=== PATIENT | male | born 1975 | race Caucasian/White ===

== ENCOUNTER 2019-04-06 02:28 | Observation (INO) | payer BC ==
[2019-04-06] MEDS ORDERED: Sodium Chloride 0.9% 10 ML Syringe FLUSH PRN (02:45)
[2019-04-06] MEDS ORDERED: Ondansetron 4 MG/2 ML SDV IVPUSH ONE (02:45)
[2019-04-06] MEDS ORDERED: Sodium Chloride 0.9% 2.5 ML Syringe FLUSH PRN (02:45)
[2019-04-06] MEDS ORDERED: HYDROmorphone 1 MG/ML Syringe IVPUSH ONE (02:45)
[2019-04-06] MEDS ORDERED: Sodium Chloride 0.9% 1,000 ML IV ONE ×2 (02:45→03:09)
--- NOTE | 2019-04-06 02:49 | EDM.PDOC ---
ED HPI GENERAL MEDICAL PROBLEM - General Chief Complaint: Abdominal Pain Stated Complaint: PLUGGED ILEOSTOMY Time Seen by Provider: 04/06/19 02:38 - History of Present Illness INITIAL COMMENTS - FREE TEXT/NARRATIVE: HISTORY AND PHYSICAL: History of present illness: The patient is a 44-year-old male with a history of Crohn's disease who underwent a total colectomy and small bowel resection with ileostomy in 1994 and says that he has been doing relatively well with his Crohn's and has not had any further surgical intervention and presents with complaints of abdominal pain that started at 12 noon yesterday after eating carrots. He says that he thought that he chewed them very well and he did not eat an excessive amount but sometimes vegetables such as that will cause him to have issues with getting his bowels moving. He says that he has nausea but he has not had any vomiting and he has felt hot but no documented fever chest pain or shortness of breath. He is just recently connected with our family practice clinic and is seeing them but he does not have a GI specialist currently. He is not taking any Biologics. He says that he feels like he is drying out and he is not able to take many fluids because of the discomfort and he feels somewhat bloated. He says he has had diminished urine output and the output in his ileostomy is normal color and liquidy but much less than usual. He says the pain is diffuse but mostly localized on the right side near the ileostomy. He says that he has had an admission here at our hospital in the past for something similar and was treated with bowel rest and it opened up naturally and he did not have to have any surgical intervention--- I researched the computer I cannot find any information regarding that. The patient also says that he is concerned because he does get dehydrated very quickly. The patient does state specifically that that he has only had one other admission for bowel obstruction and it was treated conservatively Patient says that he had his original surgery in [address] [facility] in [place] and did have a second surgery in a short period of time after the first in [place] but no subsequent operative interventions have occurred Review of systems: As per history of present illness and below otherwise all systems reviewed and negative. Past medical history: As per history of present illness and as reviewed below otherwise noncontributory. Surgical history: As per history of present illness and as reviewed below otherwise noncontributory. Social history: No reported history of drug or alcohol abuse. Family history: As per history of present illness and as reviewed below otherwise noncontributory. Physical exam: General: Well-developed well-nourished man who is nontoxic and vital signs are noted. He looks uncomfortable in the room but is cooperative and interactive HEENT: Atraumatic, normocephalic, pupils reactive, negative for conjunctival pallor or scleral icterus, mucous membranes tacky, throat clear, neck supple, nontender, trachea midline. Lungs: Clear to auscultation, breath sounds equal bilaterally, chest nontender. Heart: S1S2, regular rhythm and sensory tachycardic rate of my evaluation but no overt murmurs Abdomen: Soft, the abdomen is slightly distended and bowel sounds are very quiet and there is tympany on percussion of the right upper abdominal area above the ileostomy, the ileostomy is in the right lower quadrant and is pink and viable and there is a scant amount of liquid in the appliance which the patient says is normal in color although looks brownish pinkish on my evaluation. There is tenderness superior to the ileostomy extending to the upper abdomen but no localized area of tenderness and there is no rebound or guarding. Negative for masses or hepatosplenomegaly. Negative for costovertebral tenderness. Pelvis: Stable nontender. Genitourinary: Deferred. Rectal: Deferred. Extremities: Atraumatic, negative for cords or calf pain. Neurovascular unremarkable. Neuro: Awake, alert, oriented. Cranial nerves II through XII unremarkable. Cerebellum unremarkable. Motor and sensory unremarkable throughout. Exam nonfocal. Diagnostics: CBC CMP amylase lipase lactic acid UA with reflex CT scan of the abdomen and pelvis Therapeutics: IV fluids Zofran Dilaudid Patient is more comfortable and says that his pain is manageable. He is aware of testing results and need for admission to the hospital and is agreeable. His nausea is much improved 0500: Case was discussed with Dr. Castro will be on consult and agrees with IV fluids bowel rest and does not request an NG tube to be placed. She would like admission to medicine service 0505: Case was discussed with Dr. Elizalde who accepts the patient for observation admission Impression: Abdominal pain, small bowel obstruction History of Crohn's disease with total colectomy and ileostomy Definitive disposition and diagnosis as appropriate pending reevaluation and review of above. abdomen Pain Score (Numeric/FACES): 8 - Related Data Allergies Allergy/AdvReac Type Severity Reaction Status Date / Time meperidine HCl [From Demerol] Allergy Hallucinati Verified 04/06/19 02:31 ons Home Meds: Home Meds Testosterone Cypionate 200 mg IM ASDIRECTED 04/06/19 [History] hydroCHLOROthiazide [Hydrochlorothiazide] 1 tab PO DAILY 04/06/19 [History] ED ROS GENERAL - Review of Systems Review Of Systems: ROS reveals no pertinent complaints other than HPI. ED EXAM, GENERAL - Physical Exam Exam: See Below (See dictation) Course - Vital Signs Last Recorded V/S: Last Vital Signs Temp 36.4 C 04/06/19 05:01 Pulse 82 04/06/19 05:01 Resp 18 04/06/19 05:01 BP 116/75 04/06/19 05:01 Pulse Ox 97 04/06/19 05:01 - Orders/Labs/Meds Orders: Active Orders 24 hr Category Date Time Status Patient Status [ADT] Stat ADT 04/06/19 05:05 Ordered Notify Provider Consults [RC] ASDIRECTED Care 04/06/19 05:02 Ordered Consult to Physician [CONS] Stat Cons 04/06/19 05:02 Ordered Sodium Chloride 0.9% [Normal Saline] 1,000 ml Med 04/06/19 05:00 Active IV ASDIRECTED Sodium Chloride 0.9% [Saline Flush] Med 04/06/19 02:45 Active 10 ml FLUSH ASDIRECTED PRN Sodium Chloride 0.9% [Saline Flush] Med 04/06/19 02:45 Active 2.5 ml FLUSH ASDIRECTED PRN Saline Lock Insert [OM.PC] Stat Oth 04/06/19 02:44 Ordered Medication Orders Sodium Chloride (Normal Saline) 1,000 mls @ 150 mls/hr IV ASDIRECTED JOSIAS Sodium Chloride (Saline Flush) 10 ml FLUSH ASDIRECTED PRN PRN Reason: Keep Vein Open Sodium Chloride (Saline Flush) 2.5 ml FLUSH ASDIRECTED PRN PRN Reason: Keep Vein Open Labs: Laboratory Tests 04/06/19 04/06/19 04/06/19 Range/Units 02:40 02:40 02:40 WBC 9.12 (4.0-11.0) K/uL RBC 5.88 (4.50-5.90) M/uL Hgb 19.0 H (13.0-17.0) g/dL Hct 52.9 H (38.0-50.0) % MCV 90.0 (80.0-98.0) fL MCH 32.3 H (27.0-32.0) pg MCHC 35.9 (31.0-37.0) g/dL RDW Std Deviation 43.4 (28.0-62.0) fl RDW Coeff of Emily 14 (11.0-15.0) % Plt Count 232 (150-400) K/uL MPV 9.90 (7.40-12.00) fL Neut % (Auto) 83.5 H (48.0-80.0) % Lymph % (Auto) 11.8 L (16.0-40.0) % [place] % (Auto) 4.5 (0.0-15.0) % Eos % (Auto) 0.1 (0.0-7.0) % Baso % (Auto) 0.1 (0.0-1.5) % Neut # (Auto) 7.6 H (1.4-5.7) K/uL Lymph # (Auto) 1.1 (0.6-2.4) K/uL [place] # (Auto) 0.4 (0.0-0.8) K/uL Eos # (Auto) 0.0 (0.0-0.7) K/uL Baso # (Auto) 0.0 (0.0-0.1) K/uL Nucleated RBC % 0.0 /100WBC Nucleated RBCs # 0 K/uL Lactate 1.8 (0.20-2.00) mmol/L Sodium 132 L (136-148) mmol/L Potassium 4.1 (3.5-5.1) mmol/L Chloride 95 L (98-107) mmol/L Carbon Dioxide 27.7 (21.0-32.0) mmol/L BUN 22 H (7.0-18.0) mg/dL Creatinine 1.4 H (0.8-1.3) mg/dL Est Cr Clr Drug Dosing 67.33 mL/min Estimated GFR (MDRD) 55.1 ml/min Glucose 133 H (74-106) mg/dL Calcium 10.2 H (8.5-10.1) mg/dL Total Bilirubin 2.3 H (0.2-1.0) mg/dL AST 53 H (15-37) IU/L ALT 103 H (14-63) IU/L Alkaline Phosphatase 100 (46-116) U/L Total Protein 8.7 H (6.4-8.2) g/dL Albumin 4.8 (3.4-5.0) g/dL Globulin 3.9 (2.6-4.0) g/dL Albumin/Globulin Ratio 1.2 (0.9-1.6) Amylase 58 (25-115) U/L Lipase 123 (73-393) U/L Urine Color Urine Appearance Urine pH (5.0-8.0) Ur Specific [place] (1.001-1.035) Urine Protein (NEGATIVE) mg/dL Urine Glucose (UA) (NEGATIVE) mg/dL Urine Ketones (NEGATIVE) mg/dL Urine Occult Blood (NEGATIVE) Urine Nitrite (NEGATIVE) Urine Bilirubin (NEGATIVE) Urine Urobilinogen (<2.0) EU/dL Ur Leukocyte Esterase (NEGATIVE) 04/06/19 Range/Units 04:10 WBC (4.0-11.0) K/uL RBC (4.50-5.90) M/uL Hgb (13.0-17.0) g/dL Hct (38.0-50.0) % MCV (80.0-98.0) fL MCH (27.0-32.0) pg MCHC (31.0-37.0) g/dL RDW Std Deviation (28.0-62.0) fl RDW Coeff of Emily (11.0-15.0) % Plt Count (150-400) K/uL MPV (7.40-12.00) fL Neut % (Auto) (48.0-80.0) % Lymph % (Auto) (16.0-40.0) % [place] % (Auto) (0.0-15.0) % Eos % (Auto) (0.0-7.0) % Baso % (Auto) (0.0-1.5) % Neut # (Auto) (1.4-5.7) K/uL Lymph # (Auto) (0.6-2.4) K/uL [place] # (Auto) (0.0-0.8) K/uL Eos # (Auto) (0.0-0.7) K/uL Baso # (Auto) (0.0-0.1) K/uL Nucleated RBC % /100WBC Nucleated RBCs # K/uL Lactate (0.20-2.00) mmol/L Sodium (136-148) mmol/L Potassium (3.5-5.1) mmol/L Chloride (98-107) mmol/L Carbon Dioxide (21.0-32.0) mmol/L BUN (7.0-18.0) mg/dL Creatinine (0.8-1.3) mg/dL Est Cr Clr Drug Dosing mL/min Estimated GFR (MDRD) ml/min Glucose (74-106) mg/dL Calcium (8.5-10.1) mg/dL Total Bilirubin (0.2-1.0) mg/dL AST (15-37) IU/L ALT (14-63) IU/L Alkaline Phosphatase (46-116) U/L Total Protein (6.4-8.2) g/dL Albumin (3.4-5.0) g/dL Globulin (2.6-4.0) g/dL Albumin/Globulin Ratio (0.9-1.6) Amylase (25-115) U/L Lipase (73-393) U/L Urine Color YELLOW Urine Appearance CLEAR Urine pH 5.5 (5.0-8.0) Ur Specific [place] 1.010 (1.001-1.035) Urine Protein NEGATIVE (NEGATIVE) mg/dL Urine Glucose (UA) NEGATIVE (NEGATIVE) mg/dL Urine Ketones TRACE H (NEGATIVE) mg/dL Urine Occult Blood NEGATIVE (NEGATIVE) Urine Nitrite NEGATIVE (NEGATIVE) Urine Bilirubin NEGATIVE (NEGATIVE) Urine Urobilinogen 0.2 (<2.0) EU/dL Ur Leukocyte Esterase NEGATIVE (NEGATIVE) Meds: Medications Generic Name Dose Route Start Last Admin Trade Name Freq PRN Reason Stop Dose Admin Sodium Chloride 1,000 mls @ 150 mls/hr 04/06/19 05:00 Normal Saline IV ASDIRECTED JOSIAS Sodium Chloride 10 ml 04/06/19 02:45 Saline Flush FLUSH ASDIRECTED PRN Keep Vein Open Sodium Chloride 2.5 ml 04/06/19 02:45 Saline Flush FLUSH ASDIRECTED PRN Keep Vein Open Discontinued Medications Generic Name Dose Route Start Last Admin Trade Name Analisa PRN Reason Stop Dose Admin Hydromorphone HCl 1 mg 04/06/19 02:45 04/06/19 02:51 Dilaudid IVPUSH 04/06/19 02:46 1 mg ONETIME ONE Administration Sodium Chloride 1,000 mls @ 999 mls/hr 04/06/19 02:45 04/06/19 02:51 Normal Saline IV 04/06/19 03:45 999 mls/hr STAT ONE Administration Sodium Chloride 1,000 mls @ 999 mls/hr 04/06/19 03:09 04/06/19 04:13 Normal Saline IV 04/06/19 04:09 999 mls/hr STAT ONE Administration Iopamidol 80 ml 04/06/19 03:59 04/06/19 04:00 Isovue Multipack-370 (76%) IVPUSH 04/06/19 04:00 80 ml ONETIME STA Administration Ondansetron HCl 4 mg 04/06/19 02:45 04/06/19 02:51 Zofran IVPUSH 04/06/19 02:46 4 mg ONETIME ONE Administration Departure - Departure Time of Disposition: 05:07 Disposition: Refer to Observation Condition: Good Clinical Impression: Small bowel obstruction - Discharge Information Referrals: Ubaldo Askew MD [Primary Care Provider] - Forms: ED Department Discharge - My Orders Last 24 Hours: My Active Orders 04/06/19 02:44 Saline Lock Insert [OM.PC] Stat 04/06/19 02:45 Sodium Chloride 0.9% [Saline Flush] 10 ml FLUSH ASDIRECTED PRN Sodium Chloride 0.9% [Saline Flush] 2.5 ml FLUSH ASDIRECTED PRN 04/06/19 05:00 Sodium Chloride 0.9% [Normal Saline] 1,000 ml IV ASDIRECTED 04/06/19 05:02 Notify Provider Consults [RC] ASDIRECTED Consult to Physician [CONS] Stat 04/06/19 05:05 Patient Status [ADT] Stat - Assessment/Plan Last 24 Hours: My Active Orders 04/06/19 02:44 Saline Lock Insert [OM.PC] Stat 04/06/19 02:45 Sodium Chloride 0.9% [Saline Flush] 10 ml FLUSH ASDIRECTED PRN Sodium Chloride 0.9% [Saline Flush] 2.5 ml FLUSH ASDIRECTED PRN 04/06/19 05:00 Sodium Chloride 0.9% [Normal Saline] 1,000 ml IV ASDIRECTED 04/06/19 05:02 Notify Provider Consults [RC] ASDIRECTED Consult to Physician [CONS] Stat 04/06/19 05:05 Patient Status [ADT] Stat
[2019-04-06] MEDS ORDERED: Iopamidol 755 MG/ML 500 ML Multipack Bottle IVPUSH STA (03:59)
--- NOTE | 2019-04-06 04:50 | CT ---
INDICATION: History of colectomy for Crohn`s disease. Bowel obstruction TECHNIQUE: CT abdomen and pelvis acquired with IV contrast. 80 mL of Isovue 370 administered. COMPARISON: None available FINDINGS: Lower chest: Unremarkable. Liver: Mild hepatic steatosis. Spleen: Unremarkable. Pancreas: Unremarkable. Gallbladder and bile ducts: Dependent ovoid densities within the moderately distended gallbladder consistent with a poorly calcified gallstones or sludge balls. Adrenal glands: Unremarkable. Kidneys: Unremarkable. GI tract: Post colectomy changes with a right lower quadrant ileostomy. Dilated fluid and gas-filled small bowel segments, consistent with bowel obstruction, with a transition point in the right pelvis. Vascular structures: Unremarkable. Lymph nodes: Shotty borderline periportal and portacaval lymph nodes, nonspecific, which could be reactive in the setting of hepatic steatosis. Miscellaneous: Small fluid in the posterior pelvis. No free air. Pelvic Organs: Unremarkable. Bones: Unremarkable for age. IMPRESSION: A small bowel obstruction with a transition point in the right pelvis. Hepatic steatosis. Poorly calcified gallstones versus sludge balls within the moderately distended gallbladder. Dictated by Marcin Warren MD @ 04/06/2019 4:48:22 AM Please note that all CT scans at this facility use dose modulation, iterative reconstruction, and/or weight-based dosing when appropriate to reduce radiation dose to as low as reasonably achievable. Dictated by: Marcin Warren MD @ 04/06/2019 04:48:29 (Electronically Signed)
[2019-04-06] MEDS ORDERED: Sodium Chloride 0.9% 1,000 ML IV SCH (05:00)
[2019-04-06] MEDS ORDERED: oxyCODONE 5 MG Tab PO PRN (06:38)
[2019-04-06] MEDS ORDERED: Acetaminophen 325 MG Tab PO PRN (06:38)
[2019-04-06] MEDS ORDERED: Ondansetron 4 MG/2 ML SDV IVPUSH PRN (06:38)
[2019-04-06] MEDS ORDERED: Temazepam 15 MG Cap PO PRN (06:38)
[2019-04-06] MEDS: Morphine 2 MG/ML Syringe IVPUSH PRN ×6 (06:52→19:38)
[2019-04-06] MEDS: Heparin Sodium 5,000 Units/ML Vial SUBCUT SCH ×3 (06:53→21:07)
[2019-04-06] MEDS: Sodium Chloride 0.9% 1,000 ML IV SCH ×4 (06:59→21:07)
--- NOTE | 2019-04-06 08:26 | PCM.HP ---
<Haleynarcisa Mil Duval - Last Filed: 04/06/19 08:34> H&P History of Present Illness - General Date of Service: 04/06/19 Admit Problem/Dx: Admission Diagnosis/Problem Admission Diagnosis/Problem Intestinal obstruction - History of Present Illness Initial Comments - Free Text/Narative: 44 y/o male with history of Crohn's s/p colectomy with ostomy placement who presented to the ER with abdominal pain. States that he was feeling fine up until yesterday when he ate carrots and since then he has been feeling more bloated, constipated. States that he usually gets like this once a year. Denies any nausea, vomiting. Mild diffuse abdominal pain. No blood in stool. CT abdomen showed a small bowel obstruction in right pelvic area. Denies chest pain, dyspnea, dysuria. abdomen Pain Score (Numeric/FACES): 5 - Related Data Allergies/Adverse Reactions: Allergies Allergy/AdvReac Type Severity Reaction Status Date / Time meperidine HCl [From Demerol] Allergy Hallucinati Verified 04/06/19 02:31 ons Home Medications: Home Meds Testosterone Cypionate 200 mg IM ASDIRECTED 04/06/19 [History] hydroCHLOROthiazide [Hydrochlorothiazide] 1 tab PO DAILY 04/06/19 [History] Past Medical History Cardiovascular History: Reports: Hypertension Gastrointestinal History: Reports: Inflammatory Bowel Disease, Other (See Below) Other Gastrointestinal History: crohn's ds Endocrine/Metabolic History: Reports: Other (See Below) Other Endocrine/Metabolic History: decrease testosterone - Past Surgical History GI Surgical History: Reports: Other (See Below) Other GI Surgeries/Procedures: Ileostomy Social & Family History - Family History Family Medical History: Noncontributory - Tobacco Use Smoking Status *Q: Never Smoker Second Hand Smoke Exposure: No - Caffeine Use Caffeine Use: Reports: None - Recreational Drug Use Recreational Drug Use: No H&P Review of Systems - Review of Systems: Review Of Systems: ROS reveals no pertinent complaints other than HPI. Exam - Exam Exam: See Below - Vital Signs Vital Signs: Last Vital Signs Temp 37.3 C 04/06/19 07:53 Pulse 84 04/06/19 07:53 Resp 16 04/06/19 07:53 BP 114/63 04/06/19 07:53 Pulse Ox 93 L 04/06/19 07:53 Weight: 123.604 kg - Exam General: Alert, Oriented, Cooperative HEENT: Other (dry oral mucosa) Lungs: Clear to Auscultation, Normal Respiratory Effort. No: Crackles, Wheezing Cardiovascular: Regular Rate, Regular Rhythm GI/Abdominal Exam: Other (hypoactive bowel sounds, distended. Non tender. there is loose brown stool in ostomy bag.) Extremities: Normal Inspection, No Pedal Edema Skin: Warm, Dry Neuro Extensive - Mental Status: Alert, Oriented x3 - Patient Data Lab Results Last 24 hrs: Laboratory Results - last 24 hr 04/06/19 04/06/19 04/06/19 Range/Units 02:40 02:40 02:40 WBC 9.12 (4.0-11.0) K/uL RBC 5.88 (4.50-5.90) M/uL Hgb 19.0 H (13.0-17.0) g/dL Hct 52.9 H (38.0-50.0) % MCV 90.0 (80.0-98.0) fL MCH 32.3 H (27.0-32.0) pg MCHC 35.9 (31.0-37.0) g/dL RDW Std Deviation 43.4 (28.0-62.0) fl RDW Coeff of Emily 14 (11.0-15.0) % Plt Count 232 (150-400) K/uL MPV 9.90 (7.40-12.00) fL Neut % (Auto) 83.5 H (48.0-80.0) % Lymph % (Auto) 11.8 L (16.0-40.0) % [place] % (Auto) 4.5 (0.0-15.0) % Eos % (Auto) 0.1 (0.0-7.0) % Baso % (Auto) 0.1 (0.0-1.5) % Neut # (Auto) 7.6 H (1.4-5.7) K/uL Lymph # (Auto) 1.1 (0.6-2.4) K/uL [place] # (Auto) 0.4 (0.0-0.8) K/uL Eos # (Auto) 0.0 (0.0-0.7) K/uL Baso # (Auto) 0.0 (0.0-0.1) K/uL Nucleated RBC % 0.0 /100WBC Nucleated RBCs # 0 K/uL Lactate 1.8 (0.20-2.00) mmol/L Sodium 132 L (136-148) mmol/L Potassium 4.1 (3.5-5.1) mmol/L Chloride 95 L (98-107) mmol/L Carbon Dioxide 27.7 (21.0-32.0) mmol/L BUN 22 H (7.0-18.0) mg/dL Creatinine 1.4 H (0.8-1.3) mg/dL Est Cr Clr Drug Dosing 67.33 mL/min Estimated GFR (MDRD) 55.1 ml/min Glucose 133 H (74-106) mg/dL Calcium 10.2 H (8.5-10.1) mg/dL Total Bilirubin 2.3 H (0.2-1.0) mg/dL AST 53 H (15-37) IU/L ALT 103 H (14-63) IU/L Alkaline Phosphatase 100 (46-116) U/L Total Protein 8.7 H (6.4-8.2) g/dL Albumin 4.8 (3.4-5.0) g/dL Globulin 3.9 (2.6-4.0) g/dL Albumin/Globulin Ratio 1.2 (0.9-1.6) Amylase 58 (25-115) U/L Lipase 123 (73-393) U/L Urine Color Urine Appearance Urine pH (5.0-8.0) Ur Specific Robinson (1.001-1.035) Urine Protein (NEGATIVE) mg/dL Urine Glucose (UA) (NEGATIVE) mg/dL Urine Ketones (NEGATIVE) mg/dL Urine Occult Blood (NEGATIVE) Urine Nitrite (NEGATIVE) Urine Bilirubin (NEGATIVE) Urine Urobilinogen (<2.0) EU/dL Ur Leukocyte Esterase (NEGATIVE) 04/06/19 Range/Units 04:10 WBC (4.0-11.0) K/uL RBC (4.50-5.90) M/uL Hgb (13.0-17.0) g/dL Hct (38.0-50.0) % MCV (80.0-98.0) fL MCH (27.0-32.0) pg MCHC (31.0-37.0) g/dL RDW Std Deviation (28.0-62.0) fl RDW Coeff of Emily (11.0-15.0) % Plt Count (150-400) K/uL MPV (7.40-12.00) fL Neut % (Auto) (48.0-80.0) % Lymph % (Auto) (16.0-40.0) % [place] % (Auto) (0.0-15.0) % Eos % (Auto) (0.0-7.0) % Baso % (Auto) (0.0-1.5) % Neut # (Auto) (1.4-5.7) K/uL Lymph # (Auto) (0.6-2.4) K/uL [place] # (Auto) (0.0-0.8) K/uL Eos # (Auto) (0.0-0.7) K/uL Baso # (Auto) (0.0-0.1) K/uL Nucleated RBC % /100WBC Nucleated RBCs # K/uL Lactate (0.20-2.00) mmol/L Sodium (136-148) mmol/L Potassium (3.5-5.1) mmol/L Chloride (98-107) mmol/L Carbon Dioxide (21.0-32.0) mmol/L BUN (7.0-18.0) mg/dL Creatinine (0.8-1.3) mg/dL Est Cr Clr Drug Dosing mL/min Estimated GFR (MDRD) ml/min Glucose (74-106) mg/dL Calcium (8.5-10.1) mg/dL Total Bilirubin (0.2-1.0) mg/dL AST (15-37) IU/L ALT (14-63) IU/L Alkaline Phosphatase (46-116) U/L Total Protein (6.4-8.2) g/dL Albumin (3.4-5.0) g/dL Globulin (2.6-4.0) g/dL Albumin/Globulin Ratio (0.9-1.6) Amylase (25-115) U/L Lipase (73-393) U/L Urine Color YELLOW Urine Appearance CLEAR Urine pH 5.5 (5.0-8.0) Ur Specific Robinson 1.010 (1.001-1.035) Urine Protein NEGATIVE (NEGATIVE) mg/dL Urine Glucose (UA) NEGATIVE (NEGATIVE) mg/dL Urine Ketones TRACE H (NEGATIVE) mg/dL Urine Occult Blood NEGATIVE (NEGATIVE) Urine Nitrite NEGATIVE (NEGATIVE) Urine Bilirubin NEGATIVE (NEGATIVE) Urine Urobilinogen 0.2 (<2.0) EU/dL Ur Leukocyte Esterase NEGATIVE (NEGATIVE) Result Diagrams: 04/06/19 02:40 04/06/19 02:40 Problem List Initiated/Reviewed/Updated: Yes Orders Last 24hrs: Active Orders 24 hr Category Date Time Status Patient Status [ADT] Stat ADT 04/06/19 05:05 Active Notify Provider Consults [RC] ASDIRECTED Care 04/06/19 05:02 Active Oxygen Therapy [RC] PRN Care 04/06/19 06:38 Active Up ad Tabatha [RC] ASDIRECTED Care 04/06/19 06:38 Active VTE/DVT Education [RC] PER UNIT ROUTINE Care 04/06/19 06:38 Active Vital Signs [RC] Q4H Care 04/06/19 06:38 Active Consult to Physician [CONS] Stat Cons 04/06/19 05:02 Active Nothing per Oral Now Diet [DIET] Diet 04/06/19 Breakfast Active BASIC METABOLIC PANEL,BMP [CHEM] DAILY Lab 04/07/19 05:11 Ordered BASIC METABOLIC PANEL,BMP [CHEM] DAILY Lab 04/08/19 05:11 Ordered CBC WITH AUTO DIFF [HEME] DAILY Lab 04/07/19 06:38 Ordered CBC WITH AUTO DIFF [HEME] DAILY Lab 04/08/19 06:38 Ordered Acetaminophen [Tylenol] Med 04/06/19 06:38 Active 650 mg PO Q4H PRN Heparin Sodium Med 04/06/19 06:00 Active 5,000 units SUBCUT Q8H Morphine Med 04/06/19 06:38 Active 2 mg IVPUSH Q2H PRN Ondansetron [Zofran] Med 04/06/19 06:38 Active 4 mg IVPUSH Q4H PRN Sodium Chloride 0.9% [Normal Saline] 1,000 ml Med 04/06/19 06:45 Active IV ASDIRECTED Sodium Chloride 0.9% [Saline Flush] Med 04/06/19 02:45 Active 10 ml FLUSH ASDIRECTED PRN Sodium Chloride 0.9% [Saline Flush] Med 04/06/19 02:45 Active 2.5 ml FLUSH ASDIRECTED PRN Temazepam [Restoril] Med 04/06/19 06:38 Active 15 mg PO BEDTIME PRN oxyCODONE Med 04/06/19 06:38 Active 5 mg PO Q4H PRN Saline Lock Insert [OM.PC] Stat Oth 04/06/19 02:44 Ordered Resuscitation Status Routine Resus Stat 04/06/19 06:38 Ordered Medication Orders Acetaminophen (Tylenol) 650 mg PO Q4H PRN PRN Reason: Pain (Mild 1-3)/fever Heparin Sodium (Porcine) (Heparin Sodium) 5,000 units SUBCUT Q8H [facility] Last Admin: 04/06/19 06:53 Dose: 5,000 units Sodium Chloride (Normal Saline) 1,000 mls @ 200 mls/hr IV ASDIRECTED [facility] Last Admin: 04/06/19 06:59 Dose: 125 mls/hr Morphine Sulfate (Morphine) 2 mg IVPUSH Q2H PRN PRN Reason: Pain (severe 7-10) Stop: 04/07/19 06:39 Last Admin: 04/06/19 06:52 Dose: 2 mg Ondansetron HCl (Zofran) 4 mg IVPUSH Q4H PRN PRN Reason: Nausea/Vomiting Oxycodone HCl (Oxycodone) 5 mg PO Q4H PRN PRN Reason: Pain (moderate 4-6) Sodium Chloride (Saline Flush) 10 ml FLUSH ASDIRECTED PRN PRN Reason: Keep Vein Open Sodium Chloride (Saline Flush) 2.5 ml FLUSH ASDIRECTED PRN PRN Reason: Keep Vein Open Temazepam (Restoril) 15 mg PO BEDTIME PRN PRN Reason: Sleep Assessment/Plan Comment:: A: 1. Small bowel obstruction 2. Acute kidney injury 3. Erythrocytosis 4. Hyperbilirubinemia 5. PMH Crohn's disease s/p colectomy with ostomy placement P: 1. Small bowel obstruction. Bowel rest, NPO, NS IV at 200 ml/hr. Pain control. 2. Acute kidney injury, likely 2/2 dehydration. Will continue with NS IV 200 ml/ hr. Monitor kidney function. 3. Erythrocytosis, likely 2/2 to dehydration. Monitor. Dispo: 1-2 days <Az Elizalde M - Last Filed: 04/06/19 13:18> H&P History of Present Illness - General Admit Problem/Dx: Admission Diagnosis/Problem Admission Diagnosis/Problem Intestinal obstruction I have seen and examined to patient independently of medical detail representative, Mil Pelaez MD. I have discussed the case for care of this patient with him. I have reviewed and approve of the plan of care as outlined by medical detail representative. Please see orders. Exam - Vital Signs Vital Signs: Last Vital Signs Temp 36.6 C 04/06/19 11:00 Pulse 84 04/06/19 11:00 Resp 20 04/06/19 11:00 BP 126/68 04/06/19 11:00 Pulse Ox 95 04/06/19 11:00 - Patient Data Lab Results Last 24 hrs: Laboratory Results - last 24 hr 04/06/19 04/06/19 04/06/19 Range/Units 02:40 02:40 02:40 WBC 9.12 (4.0-11.0) K/uL RBC 5.88 (4.50-5.90) M/uL Hgb 19.0 H (13.0-17.0) g/dL Hct 52.9 H (38.0-50.0) % MCV 90.0 (80.0-98.0) fL MCH 32.3 H (27.0-32.0) pg MCHC 35.9 (31.0-37.0) g/dL RDW Std Deviation 43.4 (28.0-62.0) fl RDW Coeff of Emily 14 (11.0-15.0) % Plt Count 232 (150-400) K/uL MPV 9.90 (7.40-12.00) fL Neut % (Auto) 83.5 H (48.0-80.0) % Lymph % (Auto) 11.8 L (16.0-40.0) % [place] % (Auto) 4.5 (0.0-15.0) % Eos % (Auto) 0.1 (0.0-7.0) % Baso % (Auto) 0.1 (0.0-1.5) % Neut # (Auto) 7.6 H (1.4-5.7) K/uL Lymph # (Auto) 1.1 (0.6-2.4) K/uL [place] # (Auto) 0.4 (0.0-0.8) K/uL Eos # (Auto) 0.0 (0.0-0.7) K/uL Baso # (Auto) 0.0 (0.0-0.1) K/uL Nucleated RBC % 0.0 /100WBC Nucleated RBCs # 0 K/uL Lactate 1.8 (0.20-2.00) mmol/L Sodium 132 L (136-148) mmol/L Potassium 4.1 (3.5-5.1) mmol/L Chloride 95 L (98-107) mmol/L Carbon Dioxide 27.7 (21.0-32.0) mmol/L BUN 22 H (7.0-18.0) mg/dL Creatinine 1.4 H (0.8-1.3) mg/dL Est Cr Clr Drug Dosing 67.33 mL/min Estimated GFR (MDRD) 55.1 ml/min Glucose 133 H (74-106) mg/dL Calcium 10.2 H (8.5-10.1) mg/dL Total Bilirubin 2.3 H (0.2-1.0) mg/dL AST 53 H (15-37) IU/L ALT 103 H (14-63) IU/L Alkaline Phosphatase 100 (46-116) U/L Total Protein 8.7 H (6.4-8.2) g/dL Albumin 4.8 (3.4-5.0) g/dL Globulin 3.9 (2.6-4.0) g/dL Albumin/Globulin Ratio 1.2 (0.9-1.6) Amylase 58 (25-115) U/L Lipase 123 (73-393) U/L Urine Color Urine Appearance Urine pH (5.0-8.0) Ur Specific Robinson (1.001-1.035) Urine Protein (NEGATIVE) mg/dL Urine Glucose (UA) (NEGATIVE) mg/dL Urine Ketones (NEGATIVE) mg/dL Urine Occult Blood (NEGATIVE) Urine Nitrite (NEGATIVE) Urine Bilirubin (NEGATIVE) Urine Urobilinogen (<2.0) EU/dL Ur Leukocyte Esterase (NEGATIVE) 04/06/19 Range/Units 04:10 WBC (4.0-11.0) K/uL RBC (4.50-5.90) M/uL Hgb (13.0-17.0) g/dL Hct (38.0-50.0) % MCV (80.0-98.0) fL MCH (27.0-32.0) pg MCHC (31.0-37.0) g/dL RDW Std Deviation (28.0-62.0) fl RDW Coeff of Emily (11.0-15.0) % Plt Count (150-400) K/uL MPV (7.40-12.00) fL Neut % (Auto) (48.0-80.0) % Lymph % (Auto) (16.0-40.0) % [place] % (Auto) (0.0-15.0) % Eos % (Auto) (0.0-7.0) % Baso % (Auto) (0.0-1.5) % Neut # (Auto) (1.4-5.7) K/uL Lymph # (Auto) (0.6-2.4) K/uL [place] # (Auto) (0.0-0.8) K/uL Eos # (Auto) (0.0-0.7) K/uL Baso # (Auto) (0.0-0.1) K/uL Nucleated RBC % /100WBC Nucleated RBCs # K/uL Lactate (0.20-2.00) mmol/L Sodium (136-148) mmol/L Potassium (3.5-5.1) mmol/L Chloride (98-107) mmol/L Carbon Dioxide (21.0-32.0) mmol/L BUN (7.0-18.0) mg/dL Creatinine (0.8-1.3) mg/dL Est Cr Clr Drug Dosing mL/min Estimated GFR (MDRD) ml/min Glucose (74-106) mg/dL Calcium (8.5-10.1) mg/dL Total Bilirubin (0.2-1.0) mg/dL AST (15-37) IU/L ALT (14-63) IU/L Alkaline Phosphatase (46-116) U/L Total Protein (6.4-8.2) g/dL Albumin (3.4-5.0) g/dL Globulin (2.6-4.0) g/dL Albumin/Globulin Ratio (0.9-1.6) Amylase (25-115) U/L Lipase (73-393) U/L Urine Color YELLOW Urine Appearance CLEAR Urine pH 5.5 (5.0-8.0) Ur Specific [place] 1.010 (1.001-1.035) Urine Protein NEGATIVE (NEGATIVE) mg/dL Urine Glucose (UA) NEGATIVE (NEGATIVE) mg/dL Urine Ketones TRACE H (NEGATIVE) mg/dL Urine Occult Blood NEGATIVE (NEGATIVE) Urine Nitrite NEGATIVE (NEGATIVE) Urine Bilirubin NEGATIVE (NEGATIVE) Urine Urobilinogen 0.2 (<2.0) EU/dL Ur Leukocyte Esterase NEGATIVE (NEGATIVE) Result Diagrams: 04/06/19 02:40 04/06/19 02:40 Orders Last 24hrs: Active Orders 24 hr Category Date Time Status Patient Status [ADT] Stat ADT 04/06/19 05:05 Active Notify Provider Consults [RC] ASDIRECTED Care 04/06/19 05:02 Active Oxygen Therapy [RC] PRN Care 04/06/19 06:38 Active Up ad Tabatha [RC] ASDIRECTED Care 04/06/19 06:38 Active VTE/DVT Education [RC] PER UNIT ROUTINE Care 04/06/19 06:38 Active Vital Signs [RC] Q4H Care 04/06/19 06:38 Active Consult to Physician [CONS] Stat Cons 04/06/19 05:02 Active Nothing per Oral Now Diet [DIET] Diet 04/06/19 Breakfast Active BASIC METABOLIC PANEL,BMP [CHEM] DAILY Lab 04/07/19 05:11 Ordered BASIC METABOLIC PANEL,BMP [CHEM] DAILY Lab 04/08/19 05:11 Ordered CBC WITH AUTO DIFF [HEME] DAILY Lab 04/07/19 06:38 Ordered CBC WITH AUTO DIFF [HEME] DAILY Lab 04/08/19 06:38 Ordered Acetaminophen [Tylenol] Med 04/06/19 06:38 Active 650 mg PO Q4H PRN Heparin Sodium Med 04/06/19 06:00 Active 5,000 units SUBCUT Q8H Morphine Med 04/06/19 06:38 Active 2 mg IVPUSH Q2H PRN Ondansetron [Zofran] Med 04/06/19 06:38 Active 4 mg IVPUSH Q4H PRN Sodium Chloride 0.9% [Normal Saline] 1,000 ml Med 04/06/19 06:45 Active IV ASDIRECTED Sodium Chloride 0.9% [Saline Flush] Med 04/06/19 02:45 Active 10 ml FLUSH ASDIRECTED PRN Sodium Chloride 0.9% [Saline Flush] Med 04/06/19 02:45 Active 2.5 ml FLUSH ASDIRECTED PRN Temazepam [Restoril] Med 04/06/19 06:38 Active 15 mg PO BEDTIME PRN oxyCODONE Med 04/06/19 06:38 Active 5 mg PO Q4H PRN Saline Lock Insert [OM.PC] Stat Oth 04/06/19 02:44 Ordered Resuscitation Status Routine Resus Stat 04/06/19 06:38 Ordered Medication Orders Acetaminophen (Tylenol) 650 mg PO Q4H PRN PRN Reason: Pain (Mild 1-3)/fever Heparin Sodium (Porcine) (Heparin Sodium) 5,000 units SUBCUT Q8H [facility] Last Admin: 04/06/19 06:53 Dose: 5,000 units Sodium Chloride (Normal Saline) 1,000 mls @ 200 mls/hr IV ASDIRECTED [facility] Last Admin: 04/06/19 11:29 Dose: 200 mls/hr Infusion: 04/06/19 11:29 Dose: 125 mls/hr Admin: 04/06/19 06:59 Dose: 125 mls/hr Morphine Sulfate (Morphine) 2 mg IVPUSH Q2H PRN PRN Reason: Pain (severe 7-10) Stop: 04/07/19 06:39 Last Admin: 04/06/19 11:57 Dose: 2 mg Admin: 04/06/19 09:03 Dose: 2 mg Admin: 04/06/19 06:52 Dose: 2 mg Ondansetron HCl (Zofran) 4 mg IVPUSH Q4H PRN PRN Reason: Nausea/Vomiting Oxycodone HCl (Oxycodone) 5 mg PO Q4H PRN PRN Reason: Pain (moderate 4-6) Sodium Chloride (Saline Flush) 10 ml FLUSH ASDIRECTED PRN PRN Reason: Keep Vein Open Sodium Chloride (Saline Flush) 2.5 ml FLUSH ASDIRECTED PRN PRN Reason: Keep Vein Open Temazepam (Restoril) 15 mg PO BEDTIME PRN PRN Reason: Sleep
--- NOTE | 2019-04-06 14:20 | PCM.CONS ---
H&P History of Present Illness - General Date of Service: 04/06/19 Admit Problem/Dx: Admission Diagnosis/Problem Admission Diagnosis/Problem Intestinal obstruction I have seen and examined to patient independently of medical educator, Mil Pelaez MD. I have discussed the case for care of this patient with him. I have reviewed and approve of the plan of care as outlined by medical educator. Please see orders. Source of Information: Patient History Limitations: Reports: No Limitations - History of Present Illness Initial Comments - Free Text/Narative: Patient is a 44 year old male who presents with a small bowel obstruction. His history is significant for Crohns disease but he does not take medication for this . In 1994, he underwent a total colectomy with end ileostomy in [facility]. He believes they had to remove some small bowel as well. He thinks he had an issue with his colon that then caused a "leak". He underwent surgery some time ( years) after this for a SBO due to abdominal adhesions. he has been hospitalized once after this for a SBO that did not require surgery. He was doing well yesterday. He last ate carrots. He started having crampy abdominal pain, nausea and bloating. He came to the ER early this morning. His labs were normal other than a left shift. His lactate was normal. A CT abdomen/pelvis was performed that showed a SBO with a transition point in the RLQ. He is still having some ileostomy output but much less than normal. During our visit he was comfortable but then started having crampy abdominal pain. He was given morphine which helped. Toradol was ordered as well. He becomes diaphoretic with these episodes and "feels warm". He has not had a fever. He has not vomited since admission, but is having a lot of burping. This burping relieves his nausea. abdomen Pain Score (Numeric/FACES): 9 - Related Data Allergies/Adverse Reactions: Allergies Allergy/AdvReac Type Severity Reaction Status Date / Time meperidine HCl [From Demerol] Allergy Hallucinati Verified 04/06/19 02:31 ons Home Medications: Home Meds Testosterone Cypionate 200 mg IM ASDIRECTED 04/06/19 [History] hydroCHLOROthiazide [Hydrochlorothiazide] 1 tab PO DAILY 04/06/19 [History] Past Medical History Cardiovascular History: Reports: Hypertension Gastrointestinal History: Reports: Inflammatory Bowel Disease, Other (See Below) Other Gastrointestinal History: crohn's ds Endocrine/Metabolic History: Reports: Other (See Below) Other Endocrine/Metabolic History: decrease testosterone - Past Surgical History GI Surgical History: Reports: Other (See Below) Other GI Surgeries/Procedures: Ileostomy Social & Family History - Family History Family Medical History: Noncontributory - Tobacco Use Smoking Status *Q: Never Smoker Second Hand Smoke Exposure: No - Caffeine Use Caffeine Use: Reports: None - Recreational Drug Use Recreational Drug Use: No H&P Review of Systems - Review of Systems: Review Of Systems: ROS reveals no pertinent complaints other than HPI. Exam - Exam Exam: See Below - Vital Signs Vital Signs: Last Vital Signs Temp 36.6 C 04/06/19 11:00 Pulse 84 04/06/19 11:00 Resp 20 04/06/19 11:00 BP 126/68 04/06/19 11:00 Pulse Ox 95 04/06/19 11:00 Weight: 123.604 kg - Exam General: Alert, Oriented, Moderate Distress HEENT: Conjunctiva Clear, Mucosa Moist & [place], Posterior Pharynx Clear Lungs: Normal Respiratory Effort GI/Abdominal Exam: Distended, Tender (Diffusely tender with deep palpation. ), Other (Stoma appears pink and healthy. Able to digitally palpate past the fascia without difficulty. There is orange, liquid stool in his bag. No air. ). No: Guarding, Rigid, Rebound - Patient Data Lab Results Last 24 hrs: Laboratory Results - last 24 hr 04/06/19 04/06/19 04/06/19 Range/Units 02:40 02:40 02:40 WBC 9.12 (4.0-11.0) K/uL RBC 5.88 (4.50-5.90) M/uL Hgb 19.0 H (13.0-17.0) g/dL Hct 52.9 H (38.0-50.0) % MCV 90.0 (80.0-98.0) fL MCH 32.3 H (27.0-32.0) pg MCHC 35.9 (31.0-37.0) g/dL RDW Std Deviation 43.4 (28.0-62.0) fl RDW Coeff of Emily 14 (11.0-15.0) % Plt Count 232 (150-400) K/uL MPV 9.90 (7.40-12.00) fL Neut % (Auto) 83.5 H (48.0-80.0) % Lymph % (Auto) 11.8 L (16.0-40.0) % [place] % (Auto) 4.5 (0.0-15.0) % Eos % (Auto) 0.1 (0.0-7.0) % Baso % (Auto) 0.1 (0.0-1.5) % Neut # (Auto) 7.6 H (1.4-5.7) K/uL Lymph # (Auto) 1.1 (0.6-2.4) K/uL [place] # (Auto) 0.4 (0.0-0.8) K/uL Eos # (Auto) 0.0 (0.0-0.7) K/uL Baso # (Auto) 0.0 (0.0-0.1) K/uL Nucleated RBC % 0.0 /100WBC Nucleated RBCs # 0 K/uL Lactate 1.8 (0.20-2.00) mmol/L Sodium 132 L (136-148) mmol/L Potassium 4.1 (3.5-5.1) mmol/L Chloride 95 L (98-107) mmol/L Carbon Dioxide 27.7 (21.0-32.0) mmol/L BUN 22 H (7.0-18.0) mg/dL Creatinine 1.4 H (0.8-1.3) mg/dL Est Cr Clr Drug Dosing 67.33 mL/min Estimated GFR (MDRD) 55.1 ml/min Glucose 133 H (74-106) mg/dL Calcium 10.2 H (8.5-10.1) mg/dL Total Bilirubin 2.3 H (0.2-1.0) mg/dL AST 53 H (15-37) IU/L ALT 103 H (14-63) IU/L Alkaline Phosphatase 100 (46-116) U/L Total Protein 8.7 H (6.4-8.2) g/dL Albumin 4.8 (3.4-5.0) g/dL Globulin 3.9 (2.6-4.0) g/dL Albumin/Globulin Ratio 1.2 (0.9-1.6) Amylase 58 (25-115) U/L Lipase 123 (73-393) U/L Urine Color Urine Appearance Urine pH (5.0-8.0) Ur Specific [place] (1.001-1.035) Urine Protein (NEGATIVE) mg/dL Urine Glucose (UA) (NEGATIVE) mg/dL Urine Ketones (NEGATIVE) mg/dL Urine Occult Blood (NEGATIVE) Urine Nitrite (NEGATIVE) Urine Bilirubin (NEGATIVE) Urine Urobilinogen (<2.0) EU/dL Ur Leukocyte Esterase (NEGATIVE) 04/06/19 Range/Units 04:10 WBC (4.0-11.0) K/uL RBC (4.50-5.90) M/uL Hgb (13.0-17.0) g/dL Hct (38.0-50.0) % MCV (80.0-98.0) fL MCH (27.0-32.0) pg MCHC (31.0-37.0) g/dL RDW Std Deviation (28.0-62.0) fl RDW Coeff of Emily (11.0-15.0) % Plt Count (150-400) K/uL MPV (7.40-12.00) fL Neut % (Auto) (48.0-80.0) % Lymph % (Auto) (16.0-40.0) % [place] % (Auto) (0.0-15.0) % Eos % (Auto) (0.0-7.0) % Baso % (Auto) (0.0-1.5) % Neut # (Auto) (1.4-5.7) K/uL Lymph # (Auto) (0.6-2.4) K/uL [place] # (Auto) (0.0-0.8) K/uL Eos # (Auto) (0.0-0.7) K/uL Baso # (Auto) (0.0-0.1) K/uL Nucleated RBC % /100WBC Nucleated RBCs # K/uL Lactate (0.20-2.00) mmol/L Sodium (136-148) mmol/L Potassium (3.5-5.1) mmol/L Chloride (98-107) mmol/L Carbon Dioxide (21.0-32.0) mmol/L BUN (7.0-18.0) mg/dL Creatinine (0.8-1.3) mg/dL Est Cr Clr Drug Dosing mL/min Estimated GFR (MDRD) ml/min Glucose (74-106) mg/dL Calcium (8.5-10.1) mg/dL Total Bilirubin (0.2-1.0) mg/dL AST (15-37) IU/L ALT (14-63) IU/L Alkaline Phosphatase (46-116) U/L Total Protein (6.4-8.2) g/dL Albumin (3.4-5.0) g/dL Globulin (2.6-4.0) g/dL Albumin/Globulin Ratio (0.9-1.6) Amylase (25-115) U/L Lipase (73-393) U/L Urine Color YELLOW Urine Appearance CLEAR Urine pH 5.5 (5.0-8.0) Ur Specific [place] 1.010 (1.001-1.035) Urine Protein NEGATIVE (NEGATIVE) mg/dL Urine Glucose (UA) NEGATIVE (NEGATIVE) mg/dL Urine Ketones TRACE H (NEGATIVE) mg/dL Urine Occult Blood NEGATIVE (NEGATIVE) Urine Nitrite NEGATIVE (NEGATIVE) Urine Bilirubin NEGATIVE (NEGATIVE) Urine Urobilinogen 0.2 (<2.0) EU/dL Ur Leukocyte Esterase NEGATIVE (NEGATIVE) Result Diagrams: 04/06/19 02:40 04/06/19 02:40 Consult PN Assessment/Plan Procedures: Procedures ASSAY OF FREE TESTOSTERONE (02/20/19) ASSAY OF TOTAL TESTOSTERONE (02/20/19) ASSAY THYROID STIM HORMONE (09/15/17) COMPLETE CBC W/AUTO DIFF WBC (12/14/16) COMPREHEN METABOLIC PANEL (12/22/18) LIPID PANEL (12/22/18) RHEUMATOID FACTOR TEST QUAL (09/15/17) ROUTINE VENIPUNCTURE (02/20/19) (1) Abdominal adhesions Current Visit: Yes (2) Crohns disease SNOMED Code(s): 05817169 Code(s): K50.90 - CROHN'S DISEASE, UNSPECIFIED, WITHOUT COMPLICATIONS Current Visit: Yes (3) Dehydration SNOMED Code(s): 72089597 Code(s): E86.0 - DEHYDRATION Current Visit: Yes (4) Small bowel obstruction SNOMED Code(s): 727538786 Code(s): K56.609 - UNSP INTESTNL OBST, UNSP TO PARTIAL VERSUS COMPLETE OBST Current Visit: Yes Problem List Initiated/Reviewed/Updated: Yes Plan: The patient seemed to become much more comfortable with morphine administration. However, he probably would benefit from NG decompression. I asked the medicine team to also order toradol IV as needed for pain too. The NG would help with his burping and nausea. Repeat labs this evening. If WBC elevated order a lactate. If he doesn't resolve by tomorrow morning he should undergo a gastrograffin small bowel follow through. That would require an NG placement. The patient is not a surgical candidate at this facility given his complex surgical history and Crohn's disease. If he clinically deteriorates, abdominal pain worsens or his small bowel follow through shows no movement of contrast tomorrow, he will need to be transferred to a larger facility for surgical management. Continue IVF, NPO for now.
[2019-04-06] MEDS: Ketorolac 15 MG/ML SDV IVPUSH PRN ×2 (14:57→21:10)
[2019-04-06 19:09] LABS: CHLORIDE,CL 105 mmol/L (98-107); SODIUM,NA 137 mmol/L (136-148)
--- NOTE | 2019-04-06 19:18 | CR ---
INDICATION: Nasogastric tube placement TECHNIQUE: Abdominal radiograph 1 view COMPARISON: CT today FINDINGS: Bowel: Dilated small bowel loops are present in the mid abdomen measuring up to 4.4 cm, not significantly changed from recent CT. NG tube is present with the tip just beyond the GE junction and side port in the distal esophagus. Soft tissue: No evidence of pneumoperitoneum present. No suspicious calcifications noted. Bone: Unremarkable for age. IMPRESSIONS: 1. NG tube is present with the tip just beyond the GE junction and side port in the distal esophagus. 2. Dilated small bowel loops are present in the mid abdomen measuring up to 4.4 cm, not significantly changed from recent CT. Dictated by Herminio Alfaro MD @ 04/06/2019 7:16:53 PM Dictated by: Herminio Alfaro MD @ 04/06/2019 19:16:55 (Electronically Signed)
--- NOTE | 2019-04-06 20:51 | CR ---
INDICATION: NG tube placement TECHNIQUE: Abdomen one view 8:15 p.m. COMPARISON: 6:21 p.m. FINDINGS: Bowel: Bowel pattern is normal. NG tube tip terminates in the left upper quadrant most likely in the body of the stomach. Soft tissues: No sign of free air. No sign of soft tissue mass. No suspicious calcifications. Bones: Unremarkable for age. IMPRESSION: NG tube tip terminates in the left upper quadrant most likely in the body of the stomach. Dictated by Andrew Case MD @ 04/06/2019 8:50:32 PM Dictated by: Andrew Case MD @ 04/06/2019 20:50:36 (Electronically Signed)
[2019-04-07] MEDS: Morphine 2 MG/ML Syringe IVPUSH PRN ×2 (01:32→07:50)
[2019-04-07] MEDS: Sodium Chloride 0.9% 1,000 ML IV SCH ×3 (02:36→12:25)
[2019-04-07] MEDS: Ketorolac 15 MG/ML SDV IVPUSH PRN ×2 (03:11→09:12)
[2019-04-07 05:25] LABS: CHLORIDE,CL 107 mmol/L (98-107); SODIUM,NA 140 mmol/L (136-148)
[2019-04-07] MEDS: Heparin Sodium 5,000 Units/ML Vial SUBCUT SCH (05:57)
--- NOTE | 2019-04-07 07:52 | PCM.CONSN ---
- General Info Date of Service: 04/07/19 Subjective Update: Patient has been recieving morphine 2mg q 2hrs since admission. This is supplemented with IV toradol. His pain control is fair. He has been having breakthrough cramping. Vitals stable overnight. Labs this evening and morning are within normal range. He had an NG placed last night. There is bright green output in the NG. Minimal output in ostomy. No evidence of gas. Abdominal XR last night still shows dilated loops of small bowel. - Review of Systems HEENT: Reports: No Symptoms Pulmonary: Reports: No Symptoms Cardiovascular: Reports: No Symptoms Gastrointestinal: Reports: Abdominal Pain. Denies: [place] Musculoskeletal: Reports: No Symptoms Skin: Reports: No Symptoms - Patient Data Vitals - Most Recent: Last Vital Signs Temp 36.8 C 04/07/19 07:22 Pulse 73 04/07/19 07:22 Resp 16 04/07/19 07:22 BP 113/71 04/07/19 07:22 Pulse Ox 92 L 04/07/19 07:22 Weight - Most Recent: 123.604 kg I&O - Last 24 Hours: Intake & Output 04/06/19 04/07/19 04/07/19 22:59 06:59 14:59 Intake Total 1840 2216 Output Total 350 300 Balance 1490 1916 Lab Results Last 24 Hours: Laboratory Results - last 24 hr 04/06/19 04/06/19 04/07/19 Range/Units 18:37 18:37 04:55 WBC 8.06 (4.0-11.0) K/uL RBC 4.93 (4.50-5.90) M/uL Hgb 15.5 (13.0-17.0) g/dL Hct 45.6 (38.0-50.0) % MCV 92.5 (80.0-98.0) fL MCH 31.4 (27.0-32.0) pg MCHC 34.0 (31.0-37.0) g/dL RDW Std Deviation 46.9 (28.0-62.0) fl RDW Coeff of Emily 14 (11.0-15.0) % Plt Count 183 (150-400) K/uL MPV 9.10 (7.40-12.00) fL Neut % (Auto) 69.4 (48.0-80.0) % Lymph % (Auto) 20.3 (16.0-40.0) % [place] % (Auto) 9.8 (0.0-15.0) % Eos % (Auto) 0.4 (0.0-7.0) % Baso % (Auto) 0.1 (0.0-1.5) % Neut # (Auto) 5.6 (1.4-5.7) K/uL Lymph # (Auto) 1.6 (0.6-2.4) K/uL [place] # (Auto) 0.8 (0.0-0.8) K/uL Eos # (Auto) 0.0 (0.0-0.7) K/uL Baso # (Auto) 0.0 (0.0-0.1) K/uL Nucleated RBC % 0.0 /100WBC Nucleated RBCs # 0 K/uL Sodium 137 140 (136-148) mmol/L Potassium 3.8 4.2 (3.5-5.1) mmol/L Chloride 105 107 (98-107) mmol/L Carbon Dioxide 23.7 26.3 (21.0-32.0) mmol/L BUN 15 13 (7.0-18.0) mg/dL Creatinine 1.1 1.1 (0.8-1.3) mg/dL Est Cr Clr Drug Dosing 85.70 85.70 mL/min Estimated GFR (MDRD) > 60.0 > 60.0 ml/min Glucose 102 107 H (74-106) mg/dL Calcium 8.4 L 8.3 L (8.5-10.1) mg/dL 04/07/19 Range/Units 04:55 WBC 6.42 (4.0-11.0) K/uL RBC 4.80 (4.50-5.90) M/uL Hgb 15.0 (13.0-17.0) g/dL Hct 45.5 (38.0-50.0) % MCV 94.8 (80.0-98.0) fL MCH 31.3 (27.0-32.0) pg MCHC 33.0 (31.0-37.0) g/dL RDW Std Deviation 49.3 (28.0-62.0) fl RDW Coeff of Emily 14 (11.0-15.0) % Plt Count 171 (150-400) K/uL MPV 9.20 (7.40-12.00) fL Neut % (Auto) 69.1 (48.0-80.0) % Lymph % (Auto) 20.1 (16.0-40.0) % [place] % (Auto) 10.0 (0.0-15.0) % Eos % (Auto) 0.6 (0.0-7.0) % Baso % (Auto) 0.2 (0.0-1.5) % Neut # (Auto) 4.4 (1.4-5.7) K/uL Lymph # (Auto) 1.3 (0.6-2.4) K/uL [place] # (Auto) 0.6 (0.0-0.8) K/uL Eos # (Auto) 0.0 (0.0-0.7) K/uL Baso # (Auto) 0.0 (0.0-0.1) K/uL Nucleated RBC % 0.0 /100WBC Nucleated RBCs # 0 K/uL Sodium (136-148) mmol/L Potassium (3.5-5.1) mmol/L Chloride (98-107) mmol/L Carbon Dioxide (21.0-32.0) mmol/L BUN (7.0-18.0) mg/dL Creatinine (0.8-1.3) mg/dL Est Cr Clr Drug Dosing mL/min Estimated GFR (MDRD) ml/min Glucose (74-106) mg/dL Calcium (8.5-10.1) mg/dL Med Orders - Current: Current Medications Acetaminophen (Tylenol) 650 mg PO Q4H PRN PRN Reason: Pain (Mild 1-3)/fever Heparin Sodium (Porcine) (Heparin Sodium) 5,000 units SUBCUT Q8H [facility] Last Admin: 04/07/19 05:57 Dose: 5,000 units Sodium Chloride (Normal Saline) 1,000 mls @ 200 mls/hr IV ASDIRECTED [facility] Last Admin: 04/07/19 02:36 Dose: 200 mls/hr Ketorolac Tromethamine (Toradol) 15 mg IVPUSH Q6H PRN PRN Reason: Pain Stop: 04/11/19 13:46 Last Admin: 04/07/19 03:11 Dose: 15 mg Ondansetron HCl (Zofran) 4 mg IVPUSH Q4H PRN PRN Reason: Nausea/Vomiting Oxycodone HCl (Oxycodone) 5 mg PO Q4H PRN PRN Reason: Pain (moderate 4-6) Sodium Chloride (Saline Flush) 10 ml FLUSH ASDIRECTED PRN PRN Reason: Keep Vein Open Sodium Chloride (Saline Flush) 2.5 ml FLUSH ASDIRECTED PRN PRN Reason: Keep Vein Open Temazepam (Restoril) 15 mg PO BEDTIME PRN PRN Reason: Sleep Discontinued Medications Hydromorphone HCl (Dilaudid) 1 mg IVPUSH ONETIME ONE Stop: 04/06/19 02:46 Last Admin: 04/06/19 02:51 Dose: 1 mg Sodium Chloride (Normal Saline) 1,000 mls @ 999 mls/hr IV STAT ONE Stop: 04/06/19 03:45 Last Admin: 04/06/19 02:51 Dose: 999 mls/hr Sodium Chloride (Normal Saline) 1,000 mls @ 999 mls/hr IV STAT ONE Stop: 04/06/19 04:09 Last Admin: 04/06/19 04:13 Dose: 999 mls/hr Sodium Chloride (Normal Saline) 1,000 mls @ 150 mls/hr IV ASDIRECTED [facility] Last Admin: 04/06/19 05:09 Dose: 150 mls/hr Iopamidol (Isovue Multipack-370 (76%)) 80 ml IVPUSH ONETIME STA Stop: 04/06/19 04:00 Last Admin: 04/06/19 04:00 Dose: 80 ml Morphine Sulfate (Morphine) 2 mg IVPUSH Q2H PRN PRN Reason: Pain (severe 7-10) Stop: 04/07/19 06:39 Last Admin: 04/07/19 01:32 Dose: 2 mg Ondansetron HCl (Zofran) 4 mg IVPUSH ONETIME ONE Stop: 04/06/19 02:46 Last Admin: 04/06/19 02:51 Dose: 4 mg - Exam General: Alert, Oriented, Mild Distress HEENT: Pupils Equal Lungs: Normal Respiratory Effort GI/Abdominal Exam: Distended, Abnormal Bowel Sounds. No: Guarding, Rigid, Rebound, Tender Back Exam: Normal Inspection Consult PN Assessment/Plan Procedures: Procedures ASSAY OF FREE TESTOSTERONE (02/20/19) ASSAY OF TOTAL TESTOSTERONE (02/20/19) ASSAY THYROID STIM HORMONE (09/15/17) COMPLETE CBC W/AUTO DIFF WBC (12/14/16) COMPREHEN METABOLIC PANEL (12/22/18) LIPID PANEL (12/22/18) RHEUMATOID FACTOR TEST QUAL (09/15/17) ROUTINE VENIPUNCTURE (02/20/19) (1) Abdominal adhesions Current Visit: Yes (2) Crohns disease SNOMED Code(s): 11362141 Code(s): K50.90 - CROHN'S DISEASE, UNSPECIFIED, WITHOUT COMPLICATIONS Current Visit: Yes (3) Dehydration SNOMED Code(s): 39315478 Code(s): E86.0 - DEHYDRATION Current Visit: Yes (4) Small bowel obstruction SNOMED Code(s): 423842257 Code(s): K56.609 - UNSP INTESTNL OBST, UNSP TO PARTIAL VERSUS COMPLETE OBST Current Visit: Yes Problem List Initiated/Reviewed/Updated: Yes Plan: The patient has made no progress over the last 24 hours. Given that he has Crohn 's disease and a complex past surgical history I feel he would be better managed in a larger hospital with more resources including greater surgical resources and GI physicians. I discussed this with Dr. Valadez who is in agreement.
--- NOTE | 2019-04-07 09:25 | PCM.DCSUM1 ---
<Mil Gallardo - Last Filed: 04/07/19 09:27> Discharge Summary - Hospital Course Free Text/Narrative:: 44 y/o male with history of Crohn's disease s/p colectomy with ileostomy bag placement who presented to the ER with acute abdominal pain, nausea and vomiting. CT abdomen showed a small bowel obstruction in RLQ. He was admitted for a small bowel obstruction and treated conservatively with bowel rest and pain control. There was minimal output see in ostomy bag. NG tube was placed with 100 mls bilious fluid over 12 hours. However, patient has been complaining of continued abdominal pain. Dr. Castro, General Surgery was consulted who followed the patient and recommended transfer due to patient's extensive surgical history and for concern for adhesions. Case was discussed with Dr. Sanchez, General Surgery at [facility] in [place] who suggested admission to the medicine team. Dr. Gill accepted the patient. - Discharge Data Discharge Date: 04/07/19 Discharge Disposition: DC/Tfer to Acute Hospital 02 Condition: Fair - Patient Summary/Data Consults: Consultations 04/06/19 05:02 Consult to Physician [CONS] Stat - Discharge Plan *PRESCRIPTION DRUG MONITORING PROGRAM REVIEWED*: Not Applicable *COPY OF PRESCRIPTION DRUG MONITORING REPORT IN PATIENT BARBIE: Not Applicable Home Medications: Home Meds Testosterone Cypionate 200 mg IM TH 04/06/19 [History] hydroCHLOROthiazide [Hydrochlorothiazide] 25 mg PO DAILY 04/06/19 [History] SUMAtriptan Succinate [Imitrex] 100 mg PO . NEEDED PRN 04/07/19 [History] Tadalafil 20 mg PO . NEEDED PRN 04/07/19 [History] Patient Handouts: Small Bowel Obstruction, [id number] Referrals: Ubaldo Askew MD [Primary Care Provider] - 04/13/19 10:00 am - Discharge Summary/Plan Comment DC Time >30 min.: No - Patient Data Vitals - Most Recent: Last Vital Signs Temp 36.8 C 04/07/19 07:22 Pulse 73 04/07/19 07:22 Resp 16 04/07/19 07:22 BP 113/71 04/07/19 07:22 Pulse Ox 92 L 04/07/19 07:22 Weight - Most Recent: 123.604 kg I&O - Last 24 hours: Intake & Output 06/13/19 06/14/19 06/14/19 22:59 06:59 14:59 Intake Total 1840 2216 Output Total 350 300 Balance 1490 6696 Lab Results - Last 24 hrs: Laboratory Results - last 24 hr 04/06/19 04/06/19 04/07/19 Range/Units 18:37 18:37 04:55 WBC 8.06 (4.0-11.0) K/uL RBC 4.93 (4.50-5.90) M/uL Hgb 15.5 (13.0-17.0) g/dL Hct 45.6 (38.0-50.0) % MCV 92.5 (80.0-98.0) fL MCH 31.4 (27.0-32.0) pg MCHC 34.0 (31.0-37.0) g/dL RDW Std Deviation 46.9 (28.0-62.0) fl RDW Coeff of Emily 14 (11.0-15.0) % Plt Count 183 (150-400) K/uL MPV 9.10 (7.40-12.00) fL Neut % (Auto) 69.4 (48.0-80.0) % Lymph % (Auto) 20.3 (16.0-40.0) % Curry % (Auto) 9.8 (0.0-15.0) % Eos % (Auto) 0.4 (0.0-7.0) % Baso % (Auto) 0.1 (0.0-1.5) % Neut # (Auto) 5.6 (1.4-5.7) K/uL Lymph # (Auto) 1.6 (0.6-2.4) K/uL Curry # (Auto) 0.8 (0.0-0.8) K/uL Eos # (Auto) 0.0 (0.0-0.7) K/uL Baso # (Auto) 0.0 (0.0-0.1) K/uL Nucleated RBC % 0.0 /100WBC Nucleated RBCs # 0 K/uL Sodium 137 140 (136-148) mmol/L Potassium 3.8 4.2 (3.5-5.1) mmol/L Chloride 105 107 (98-107) mmol/L Carbon Dioxide 23.7 26.3 (21.0-32.0) mmol/L BUN 15 13 (7.0-18.0) mg/dL Creatinine 1.1 1.1 (0.8-1.3) mg/dL Est Cr Clr Drug Dosing 85.70 85.70 mL/min Estimated GFR (MDRD) > 60.0 > 60.0 ml/min Glucose 102 107 H (74-106) mg/dL Calcium 8.4 L 8.3 L (8.5-10.1) mg/dL 04/07/19 Range/Units 04:55 WBC 6.42 (4.0-11.0) K/uL RBC 4.80 (4.50-5.90) M/uL Hgb 15.0 (13.0-17.0) g/dL Hct 45.5 (38.0-50.0) % MCV 94.8 (80.0-98.0) fL MCH 31.3 (27.0-32.0) pg MCHC 33.0 (31.0-37.0) g/dL RDW Std Deviation 49.3 (28.0-62.0) fl RDW Coeff of Emily 14 (11.0-15.0) % Plt Count 171 (150-400) K/uL MPV 9.20 (7.40-12.00) fL Neut % (Auto) 69.1 (48.0-80.0) % Lymph % (Auto) 20.1 (16.0-40.0) % Curry % (Auto) 10.0 (0.0-15.0) % Eos % (Auto) 0.6 (0.0-7.0) % Baso % (Auto) 0.2 (0.0-1.5) % Neut # (Auto) 4.4 (1.4-5.7) K/uL Lymph # (Auto) 1.3 (0.6-2.4) K/uL Curry # (Auto) 0.6 (0.0-0.8) K/uL Eos # (Auto) 0.0 (0.0-0.7) K/uL Baso # (Auto) 0.0 (0.0-0.1) K/uL Nucleated RBC % 0.0 /100WBC Nucleated RBCs # 0 K/uL Sodium (136-148) mmol/L Potassium (3.5-5.1) mmol/L Chloride (98-107) mmol/L Carbon Dioxide (21.0-32.0) mmol/L BUN (7.0-18.0) mg/dL Creatinine (0.8-1.3) mg/dL Est Cr Clr Drug Dosing mL/min Estimated GFR (MDRD) ml/min Glucose (74-106) mg/dL Calcium (8.5-10.1) mg/dL Med Orders - Current: Current Medications Acetaminophen (Tylenol) 650 mg PO Q4H PRN PRN Reason: Pain (Mild 1-3)/fever Heparin Sodium (Porcine) (Heparin Sodium) 5,000 units SUBCUT Q8H [facility] Last Admin: 04/07/19 05:57 Dose: 5,000 units Sodium Chloride (Normal Saline) 1,000 mls @ 200 mls/hr IV ASDIRECTED [facility] Last Admin: 04/07/19 07:58 Dose: 200 mls/hr Ketorolac Tromethamine (Toradol) 15 mg IVPUSH Q6H PRN PRN Reason: Pain Stop: 04/11/19 13:46 Last Admin: 04/07/19 09:12 Dose: 15 mg Ondansetron HCl (Zofran) 4 mg IVPUSH Q4H PRN PRN Reason: Nausea/Vomiting Oxycodone HCl (Oxycodone) 5 mg PO Q4H PRN PRN Reason: Pain (moderate 4-6) Sodium Chloride (Saline Flush) 10 ml FLUSH ASDIRECTED PRN PRN Reason: Keep Vein Open Sodium Chloride (Saline Flush) 2.5 ml FLUSH ASDIRECTED PRN PRN Reason: Keep Vein Open Temazepam (Restoril) 15 mg PO BEDTIME PRN PRN Reason: Sleep Discontinued Medications Hydromorphone HCl (Dilaudid) 1 mg IVPUSH ONETIME ONE Stop: 04/06/19 02:46 Last Admin: 04/06/19 02:51 Dose: 1 mg Sodium Chloride (Normal Saline) 1,000 mls @ 999 mls/hr IV STAT ONE Stop: 04/06/19 03:45 Last Admin: 04/06/19 02:51 Dose: 999 mls/hr Sodium Chloride (Normal Saline) 1,000 mls @ 999 mls/hr IV STAT ONE Stop: 04/06/19 04:09 Last Admin: 04/06/19 04:13 Dose: 999 mls/hr Sodium Chloride (Normal Saline) 1,000 mls @ 150 mls/hr IV ASDIRECTED [facility] Last Admin: 04/06/19 05:09 Dose: 150 mls/hr Iopamidol (Isovue Multipack-370 (76%)) 80 ml IVPUSH ONETIME STA Stop: 04/06/19 04:00 Last Admin: 04/06/19 04:00 Dose: 80 ml Morphine Sulfate (Morphine) 2 mg IVPUSH Q2H PRN PRN Reason: Pain (severe 7-10) Stop: 04/07/19 06:39 Last Admin: 04/07/19 07:50 Dose: 2 mg Ondansetron HCl (Zofran) 4 mg IVPUSH ONETIME ONE Stop: 04/06/19 02:46 Last Admin: 04/06/19 02:51 Dose: 4 mg <Az Elizalde - Last Filed: 04/07/19 13:58> Discharge Summary - Hospital Course HPI Initial Comments: I have seen and examined to patient independently of medical supervisor, Mil Pelaez MD. I have discussed the case for care of this patient with him. I have reviewed and approve of the plan of care as outlined by medical supervisor. Please see orders. Very complicated surgical abdomen. - Patient Summary/Data Consults: Consultations 04/06/19 05:02 Consult to Physician [CONS] Stat - Patient Data Vitals - Most Recent: Last Vital Signs Temp 37.1 C 04/07/19 12:06 Pulse 85 04/07/19 12:06 Resp 17 04/07/19 12:06 BP 123/75 04/07/19 12:06 Pulse Ox 96 04/07/19 12:06 I&O - Last 24 hours: Intake & Output 04/06/19 04/07/19 04/07/19 22:59 06:59 14:59 Intake Total 1840 2216 Output Total 350 300 Balance 1490 1916 Lab Results - Last 24 hrs: Laboratory Results - last 24 hr 04/06/19 04/06/19 04/07/19 Range/Units 18:37 18:37 04:55 WBC 8.06 (4.0-11.0) K/uL RBC 4.93 (4.50-5.90) M/uL Hgb 15.5 (13.0-17.0) g/dL Hct 45.6 (38.0-50.0) % MCV 92.5 (80.0-98.0) fL MCH 31.4 (27.0-32.0) pg MCHC 34.0 (31.0-37.0) g/dL RDW Std Deviation 46.9 (28.0-62.0) fl RDW Coeff of Emily 14 (11.0-15.0) % Plt Count 183 (150-400) K/uL MPV 9.10 (7.40-12.00) fL Neut % (Auto) 69.4 (48.0-80.0) % Lymph % (Auto) 20.3 (16.0-40.0) % Curry % (Auto) 9.8 (0.0-15.0) % Eos % (Auto) 0.4 (0.0-7.0) % Baso % (Auto) 0.1 (0.0-1.5) % Neut # (Auto) 5.6 (1.4-5.7) K/uL Lymph # (Auto) 1.6 (0.6-2.4) K/uL Curry # (Auto) 0.8 (0.0-0.8) K/uL Eos # (Auto) 0.0 (0.0-0.7) K/uL Baso # (Auto) 0.0 (0.0-0.1) K/uL Nucleated RBC % 0.0 /100WBC Nucleated RBCs # 0 K/uL Sodium 137 140 (136-148) mmol/L Potassium 3.8 4.2 (3.5-5.1) mmol/L Chloride 105 107 (98-107) mmol/L Carbon Dioxide 23.7 26.3 (21.0-32.0) mmol/L BUN 15 13 (7.0-18.0) mg/dL Creatinine 1.1 1.1 (0.8-1.3) mg/dL Est Cr Clr Drug Dosing 85.70 85.70 mL/min Estimated GFR (MDRD) > 60.0 > 60.0 ml/min Glucose 102 107 H (74-106) mg/dL Calcium 8.4 L 8.3 L (8.5-10.1) mg/dL 04/07/19 Range/Units 04:55 WBC 6.42 (4.0-11.0) K/uL RBC 4.80 (4.50-5.90) M/uL Hgb 15.0 (13.0-17.0) g/dL Hct 45.5 (38.0-50.0) % MCV 94.8 (80.0-98.0) fL MCH 31.3 (27.0-32.0) pg MCHC 33.0 (31.0-37.0) g/dL RDW Std Deviation 49.3 (28.0-62.0) fl RDW Coeff of Emily 14 (11.0-15.0) % Plt Count 171 (150-400) K/uL MPV 9.20 (7.40-12.00) fL Neut % (Auto) 69.1 (48.0-80.0) % Lymph % (Auto) 20.1 (16.0-40.0) % Curry % (Auto) 10.0 (0.0-15.0) % Eos % (Auto) 0.6 (0.0-7.0) % Baso % (Auto) 0.2 (0.0-1.5) % Neut # (Auto) 4.4 (1.4-5.7) K/uL Lymph # (Auto) 1.3 (0.6-2.4) K/uL Curry # (Auto) 0.6 (0.0-0.8) K/uL Eos # (Auto) 0.0 (0.0-0.7) K/uL Baso # (Auto) 0.0 (0.0-0.1) K/uL Nucleated RBC % 0.0 /100WBC Nucleated RBCs # 0 K/uL Sodium (136-148) mmol/L Potassium (3.5-5.1) mmol/L Chloride (98-107) mmol/L Carbon Dioxide (21.0-32.0) mmol/L BUN (7.0-18.0) mg/dL Creatinine (0.8-1.3) mg/dL Est Cr Clr Drug Dosing mL/min Estimated GFR (MDRD) ml/min Glucose (74-106) mg/dL Calcium (8.5-10.1) mg/dL Med Orders - Current: Current Medications Acetaminophen (Tylenol) 650 mg PO Q4H PRN PRN Reason: Pain (Mild 1-3)/fever Heparin Sodium (Porcine) (Heparin Sodium) 5,000 units SUBCUT Q8H [facility] Last Admin: 04/07/19 05:57 Dose: 5,000 units Sodium Chloride (Normal Saline) 1,000 mls @ 200 mls/hr IV ASDIRECTED [facility] Last Admin: 04/07/19 12:25 Dose: 200 mls/hr Ketorolac Tromethamine (Toradol) 15 mg IVPUSH Q6H PRN PRN Reason: Pain Stop: 04/11/19 13:46 Last Admin: 04/07/19 09:12 Dose: 15 mg Ondansetron HCl (Zofran) 4 mg IVPUSH Q4H PRN PRN Reason: Nausea/Vomiting Oxycodone HCl (Oxycodone) 5 mg PO Q4H PRN PRN Reason: Pain (moderate 4-6) Sodium Chloride (Saline Flush) 10 ml FLUSH ASDIRECTED PRN PRN Reason: Keep Vein Open Sodium Chloride (Saline Flush) 2.5 ml FLUSH ASDIRECTED PRN PRN Reason: Keep Vein Open Temazepam (Restoril) 15 mg PO BEDTIME PRN PRN Reason: Sleep Discontinued Medications Hydromorphone HCl (Dilaudid) 1 mg IVPUSH ONETIME ONE Stop: 04/06/19 02:46 Last Admin: 04/06/19 02:51 Dose: 1 mg Sodium Chloride (Normal Saline) 1,000 mls @ 999 mls/hr IV STAT ONE Stop: 04/06/19 03:45 Last Admin: 04/06/19 02:51 Dose: 999 mls/hr Sodium Chloride (Normal Saline) 1,000 mls @ 999 mls/hr IV STAT ONE Stop: 04/06/19 04:09 Last Admin: 04/06/19 04:13 Dose: 999 mls/hr Sodium Chloride (Normal Saline) 1,000 mls @ 150 mls/hr IV ASDIRECTED [facility] Last Admin: 04/06/19 05:09 Dose: 150 mls/hr Iopamidol (Isovue Multipack-370 (76%)) 80 ml IVPUSH ONETIME STA Stop: 04/06/19 04:00 Last Admin: 04/06/19 04:00 Dose: 80 ml Ketorolac Tromethamine (Toradol) 15 mg IVPUSH NOW ONE Stop: 04/07/19 13:18 Last Admin: 04/07/19 13:35 Dose: 15 mg Morphine Sulfate (Morphine) 2 mg IVPUSH Q2H PRN PRN Reason: Pain (severe 7-10) Stop: 04/07/19 06:39 Last Admin: 04/07/19 07:50 Dose: 2 mg Ondansetron HCl (Zofran) 4 mg IVPUSH ONETIME ONE Stop: 04/06/19 02:46 Last Admin: 04/06/19 02:51 Dose: 4 mg
--- NOTE | 2019-04-07 11:07 | PCM.DCSUM1 ---
<Mil Gallardo - Last Filed: 04/07/19 11:06> Discharge Summary - Hospital Course Free Text/Narrative:: 44 y/o male with history of Crohn's disease s/p colectomy with ileostomy bag placement who presented to the ER with acute abdominal pain, nausea and vomiting. CT abdomen showed a small bowel obstruction in RLQ. He was admitted for a small bowel obstruction and treated conservatively with bowel rest and pain control. There was minimal output see in ostomy bag. NG tube was placed with 100 mls bilious fluid over 12 hours. However, patient has been complaining of continued abdominal pain. Dr. Castro, General Surgery was consulted who followed the patient and recommended transfer due to patient's extensive surgical history and for concern for adhesions. Spoke with Dr. Don at [facility] in [place] who accepted the patient. - Discharge Data Discharge Date: 04/07/19 Discharge Disposition: DC/Tfer to Acute Hospital 02 Condition: Fair - Patient Summary/Data Consults: Consultations 04/06/19 05:02 Consult to Physician [CONS] Stat - Discharge Plan *PRESCRIPTION DRUG MONITORING PROGRAM REVIEWED*: Not Applicable *COPY OF PRESCRIPTION DRUG MONITORING REPORT IN PATIENT BARBIE: Not Applicable Home Medications: Home Meds Testosterone Cypionate 200 mg IM TH 04/06/19 [History] hydroCHLOROthiazide [Hydrochlorothiazide] 25 mg PO DAILY 04/06/19 [History] SUMAtriptan Succinate [Imitrex] 100 mg PO . NEEDED PRN 04/07/19 [History] Tadalafil 20 mg PO . NEEDED PRN 04/07/19 [History] Patient Handouts: Small Bowel Obstruction, [id number] Referrals: Ubaldo Askew MD [Primary Care Provider] - 04/13/19 10:00 am - Discharge Summary/Plan Comment DC Time >30 min.: No - Patient Data Vitals - Most Recent: Last Vital Signs Temp 36.8 C 04/07/19 07:22 Pulse 73 04/07/19 07:22 Resp 16 04/07/19 07:22 BP 113/71 04/07/19 07:22 Pulse Ox 92 L 04/07/19 07:22 Weight - Most Recent: 123.604 kg I&O - Last 24 hours: Intake & Output 04/06/19 04/07/19 04/07/19 22:59 06:59 14:59 Intake Total 1840 2216 Output Total 350 300 Balance 1490 4136 Lab Results - Last 24 hrs: Laboratory Results - last 24 hr 04/06/19 04/06/19 04/07/19 Range/Units 18:37 18:37 04:55 WBC 8.06 (4.0-11.0) K/uL RBC 4.93 (4.50-5.90) M/uL Hgb 15.5 (13.0-17.0) g/dL Hct 45.6 (38.0-50.0) % MCV 92.5 (80.0-98.0) fL MCH 31.4 (27.0-32.0) pg MCHC 34.0 (31.0-37.0) g/dL RDW Std Deviation 46.9 (28.0-62.0) fl RDW Coeff of Emily 14 (11.0-15.0) % Plt Count 183 (150-400) K/uL MPV 9.10 (7.40-12.00) fL Neut % (Auto) 69.4 (48.0-80.0) % Lymph % (Auto) 20.3 (16.0-40.0) % Riley % (Auto) 9.8 (0.0-15.0) % Eos % (Auto) 0.4 (0.0-7.0) % Baso % (Auto) 0.1 (0.0-1.5) % Neut # (Auto) 5.6 (1.4-5.7) K/uL Lymph # (Auto) 1.6 (0.6-2.4) K/uL Riley # (Auto) 0.8 (0.0-0.8) K/uL Eos # (Auto) 0.0 (0.0-0.7) K/uL Baso # (Auto) 0.0 (0.0-0.1) K/uL Nucleated RBC % 0.0 /100WBC Nucleated RBCs # 0 K/uL Sodium 137 140 (136-148) mmol/L Potassium 3.8 4.2 (3.5-5.1) mmol/L Chloride 105 107 (98-107) mmol/L Carbon Dioxide 23.7 26.3 (21.0-32.0) mmol/L BUN 15 13 (7.0-18.0) mg/dL Creatinine 1.1 1.1 (0.8-1.3) mg/dL Est Cr Clr Drug Dosing 85.70 85.70 mL/min Estimated GFR (MDRD) > 60.0 > 60.0 ml/min Glucose 102 107 H (74-106) mg/dL Calcium 8.4 L 8.3 L (8.5-10.1) mg/dL 04/07/19 Range/Units 04:55 WBC 6.42 (4.0-11.0) K/uL RBC 4.80 (4.50-5.90) M/uL Hgb 15.0 (13.0-17.0) g/dL Hct 45.5 (38.0-50.0) % MCV 94.8 (80.0-98.0) fL MCH 31.3 (27.0-32.0) pg MCHC 33.0 (31.0-37.0) g/dL RDW Std Deviation 49.3 (28.0-62.0) fl RDW Coeff of Emily 14 (11.0-15.0) % Plt Count 171 (150-400) K/uL MPV 9.20 (7.40-12.00) fL Neut % (Auto) 69.1 (48.0-80.0) % Lymph % (Auto) 20.1 (16.0-40.0) % Riley % (Auto) 10.0 (0.0-15.0) % Eos % (Auto) 0.6 (0.0-7.0) % Baso % (Auto) 0.2 (0.0-1.5) % Neut # (Auto) 4.4 (1.4-5.7) K/uL Lymph # (Auto) 1.3 (0.6-2.4) K/uL Riley # (Auto) 0.6 (0.0-0.8) K/uL Eos # (Auto) 0.0 (0.0-0.7) K/uL Baso # (Auto) 0.0 (0.0-0.1) K/uL Nucleated RBC % 0.0 /100WBC Nucleated RBCs # 0 K/uL Sodium (136-148) mmol/L Potassium (3.5-5.1) mmol/L Chloride (98-107) mmol/L Carbon Dioxide (21.0-32.0) mmol/L BUN (7.0-18.0) mg/dL Creatinine (0.8-1.3) mg/dL Est Cr Clr Drug Dosing mL/min Estimated GFR (MDRD) ml/min Glucose (74-106) mg/dL Calcium (8.5-10.1) mg/dL Med Orders - Current: Current Medications Acetaminophen (Tylenol) 650 mg PO Q4H PRN PRN Reason: Pain (Mild 1-3)/fever Heparin Sodium (Porcine) (Heparin Sodium) 5,000 units SUBCUT Q8H [facility] Last Admin: 04/07/19 05:57 Dose: 5,000 units Sodium Chloride (Normal Saline) 1,000 mls @ 200 mls/hr IV ASDIRECTED [facility] Last Admin: 04/07/19 07:58 Dose: 200 mls/hr Ketorolac Tromethamine (Toradol) 15 mg IVPUSH Q6H PRN PRN Reason: Pain Stop: 04/11/19 13:46 Last Admin: 04/07/19 09:12 Dose: 15 mg Ondansetron HCl (Zofran) 4 mg IVPUSH Q4H PRN PRN Reason: Nausea/Vomiting Oxycodone HCl (Oxycodone) 5 mg PO Q4H PRN PRN Reason: Pain (moderate 4-6) Sodium Chloride (Saline Flush) 10 ml FLUSH ASDIRECTED PRN PRN Reason: Keep Vein Open Sodium Chloride (Saline Flush) 2.5 ml FLUSH ASDIRECTED PRN PRN Reason: Keep Vein Open Temazepam (Restoril) 15 mg PO BEDTIME PRN PRN Reason: Sleep Discontinued Medications Hydromorphone HCl (Dilaudid) 1 mg IVPUSH ONETIME ONE Stop: 04/06/19 02:46 Last Admin: 04/06/19 02:51 Dose: 1 mg Sodium Chloride (Normal Saline) 1,000 mls @ 999 mls/hr IV STAT ONE Stop: 04/06/19 03:45 Last Admin: 04/06/19 02:51 Dose: 999 mls/hr Sodium Chloride (Normal Saline) 1,000 mls @ 999 mls/hr IV STAT ONE Stop: 04/06/19 04:09 Last Admin: 04/06/19 04:13 Dose: 999 mls/hr Sodium Chloride (Normal Saline) 1,000 mls @ 150 mls/hr IV ASDIRECTED [facility] Last Admin: 04/06/19 05:09 Dose: 150 mls/hr Iopamidol (Isovue Multipack-370 (76%)) 80 ml IVPUSH ONETIME STA Stop: 04/06/19 04:00 Last Admin: 04/06/19 04:00 Dose: 80 ml Morphine Sulfate (Morphine) 2 mg IVPUSH Q2H PRN PRN Reason: Pain (severe 7-10) Stop: 04/07/19 06:39 Last Admin: 04/07/19 07:50 Dose: 2 mg Ondansetron HCl (Zofran) 4 mg IVPUSH ONETIME ONE Stop: 04/06/19 02:46 Last Admin: 04/06/19 02:51 Dose: 4 mg <Az Elizalde - Last Filed: 04/07/19 13:58> Discharge Summary - Hospital Course HPI Initial Comments: I have seen and examined to patient independently of medical sales representative, Mil Pelaez MD. I have discussed the case for care of this patient with him. I have reviewed and approve of the plan of care as outlined by medical sales representative. Please see orders. - Patient Summary/Data Consults: Consultations 04/06/19 05:02 Consult to Physician [CONS] Stat - Patient Data Vitals - Most Recent: Last Vital Signs Temp 37.1 C 04/07/19 12:06 Pulse 85 04/07/19 12:06 Resp 17 04/07/19 12:06 BP 123/75 04/07/19 12:06 Pulse Ox 96 04/07/19 12:06 I&O - Last 24 hours: Intake & Output 04/06/19 04/07/19 04/07/19 22:59 06:59 14:59 Intake Total 1840 2216 Output Total 350 300 Balance 1490 1916 Lab Results - Last 24 hrs: Laboratory Results - last 24 hr 04/06/19 04/06/19 04/07/19 Range/Units 18:37 18:37 04:55 WBC 8.06 (4.0-11.0) K/uL RBC 4.93 (4.50-5.90) M/uL Hgb 15.5 (13.0-17.0) g/dL Hct 45.6 (38.0-50.0) % MCV 92.5 (80.0-98.0) fL MCH 31.4 (27.0-32.0) pg MCHC 34.0 (31.0-37.0) g/dL RDW Std Deviation 46.9 (28.0-62.0) fl RDW Coeff of Emily 14 (11.0-15.0) % Plt Count 183 (150-400) K/uL MPV 9.10 (7.40-12.00) fL Neut % (Auto) 69.4 (48.0-80.0) % Lymph % (Auto) 20.3 (16.0-40.0) % Riley % (Auto) 9.8 (0.0-15.0) % Eos % (Auto) 0.4 (0.0-7.0) % Baso % (Auto) 0.1 (0.0-1.5) % Neut # (Auto) 5.6 (1.4-5.7) K/uL Lymph # (Auto) 1.6 (0.6-2.4) K/uL Riley # (Auto) 0.8 (0.0-0.8) K/uL Eos # (Auto) 0.0 (0.0-0.7) K/uL Baso # (Auto) 0.0 (0.0-0.1) K/uL Nucleated RBC % 0.0 /100WBC Nucleated RBCs # 0 K/uL Sodium 137 140 (136-148) mmol/L Potassium 3.8 4.2 (3.5-5.1) mmol/L Chloride 105 107 (98-107) mmol/L Carbon Dioxide 23.7 26.3 (21.0-32.0) mmol/L BUN 15 13 (7.0-18.0) mg/dL Creatinine 1.1 1.1 (0.8-1.3) mg/dL Est Cr Clr Drug Dosing 85.70 85.70 mL/min Estimated GFR (MDRD) > 60.0 > 60.0 ml/min Glucose 102 107 H (74-106) mg/dL Calcium 8.4 L 8.3 L (8.5-10.1) mg/dL 04/07/19 Range/Units 04:55 WBC 6.42 (4.0-11.0) K/uL RBC 4.80 (4.50-5.90) M/uL Hgb 15.0 (13.0-17.0) g/dL Hct 45.5 (38.0-50.0) % MCV 94.8 (80.0-98.0) fL MCH 31.3 (27.0-32.0) pg MCHC 33.0 (31.0-37.0) g/dL RDW Std Deviation 49.3 (28.0-62.0) fl RDW Coeff of Emily 14 (11.0-15.0) % Plt Count 171 (150-400) K/uL MPV 9.20 (7.40-12.00) fL Neut % (Auto) 69.1 (48.0-80.0) % Lymph % (Auto) 20.1 (16.0-40.0) % Riley % (Auto) 10.0 (0.0-15.0) % Eos % (Auto) 0.6 (0.0-7.0) % Baso % (Auto) 0.2 (0.0-1.5) % Neut # (Auto) 4.4 (1.4-5.7) K/uL Lymph # (Auto) 1.3 (0.6-2.4) K/uL Riley # (Auto) 0.6 (0.0-0.8) K/uL Eos # (Auto) 0.0 (0.0-0.7) K/uL Baso # (Auto) 0.0 (0.0-0.1) K/uL Nucleated RBC % 0.0 /100WBC Nucleated RBCs # 0 K/uL Sodium (136-148) mmol/L Potassium (3.5-5.1) mmol/L Chloride (98-107) mmol/L Carbon Dioxide (21.0-32.0) mmol/L BUN (7.0-18.0) mg/dL Creatinine (0.8-1.3) mg/dL Est Cr Clr Drug Dosing mL/min Estimated GFR (MDRD) ml/min Glucose (74-106) mg/dL Calcium (8.5-10.1) mg/dL Med Orders - Current: Current Medications Acetaminophen (Tylenol) 650 mg PO Q4H PRN PRN Reason: Pain (Mild 1-3)/fever Heparin Sodium (Porcine) (Heparin Sodium) 5,000 units SUBCUT Q8H [facility] Last Admin: 04/07/19 05:57 Dose: 5,000 units Sodium Chloride (Normal Saline) 1,000 mls @ 200 mls/hr IV ASDIRECTED [facility] Last Admin: 04/07/19 12:25 Dose: 200 mls/hr Ketorolac Tromethamine (Toradol) 15 mg IVPUSH Q6H PRN PRN Reason: Pain Stop: 04/11/19 13:46 Last Admin: 04/07/19 09:12 Dose: 15 mg Ondansetron HCl (Zofran) 4 mg IVPUSH Q4H PRN PRN Reason: Nausea/Vomiting Oxycodone HCl (Oxycodone) 5 mg PO Q4H PRN PRN Reason: Pain (moderate 4-6) Sodium Chloride (Saline Flush) 10 ml FLUSH ASDIRECTED PRN PRN Reason: Keep Vein Open Sodium Chloride (Saline Flush) 2.5 ml FLUSH ASDIRECTED PRN PRN Reason: Keep Vein Open Temazepam (Restoril) 15 mg PO BEDTIME PRN PRN Reason: Sleep Discontinued Medications Hydromorphone HCl (Dilaudid) 1 mg IVPUSH ONETIME ONE Stop: 04/06/19 02:46 Last Admin: 04/06/19 02:51 Dose: 1 mg Sodium Chloride (Normal Saline) 1,000 mls @ 999 mls/hr IV STAT ONE Stop: 04/06/19 03:45 Last Admin: 04/06/19 02:51 Dose: 999 mls/hr Sodium Chloride (Normal Saline) 1,000 mls @ 999 mls/hr IV STAT ONE Stop: 04/06/19 04:09 Last Admin: 04/06/19 04:13 Dose: 999 mls/hr Sodium Chloride (Normal Saline) 1,000 mls @ 150 mls/hr IV ASDIRECTED [facility] Last Admin: 04/06/19 05:09 Dose: 150 mls/hr Iopamidol (Isovue Multipack-370 (76%)) 80 ml IVPUSH ONETIME STA Stop: 04/06/19 04:00 Last Admin: 04/06/19 04:00 Dose: 80 ml Ketorolac Tromethamine (Toradol) 15 mg IVPUSH NOW ONE Stop: 04/07/19 13:18 Last Admin: 04/07/19 13:35 Dose: 15 mg Morphine Sulfate (Morphine) 2 mg IVPUSH Q2H PRN PRN Reason: Pain (severe 7-10) Stop: 04/07/19 06:39 Last Admin: 04/07/19 07:50 Dose: 2 mg Ondansetron HCl (Zofran) 4 mg IVPUSH ONETIME ONE Stop: 04/06/19 02:46 Last Admin: 04/06/19 02:51 Dose: 4 mg
[2019-04-07] MEDS ORDERED: Ketorolac 15 MG/ML SDV IVPUSH ONE (13:17)
== END 2019-04-07 13:40 ==
LOC: MW.ED 02:28 → MW.MS 05:05
PROVIDERS: ADMIT Internal Medicine; ATTEND Internal Medicine
DX: K56.609 Unspecified intestinal obstruction, unspecified as to partial versus complete obstruction (principal); N17.9 Acute kidney failure, unspecified; D75.1 Secondary polycythemia; E80.6 Other disorders of bilirubin metabolism; I10 Essential (primary) hypertension; Z87.19 Personal history of other diseases of the digestive system; Z88.5 Allergy status to narcotic agent; Z93.2 Ileostomy status
CPT/HCPCS: 36415; 74018; 74177; 80048; 80053; 81003; 82150; 83605; 83690; 85025; 96361; 96374; 96375; 99285; J1170; J1644; J1885; J2270; J2405; J7040; Q9967; 99284

== ENCOUNTER 2022-02-21 13:43 | Emergency (ER) | payer BC ==
[2022-02-21] MEDS ORDERED: traMADol 50 MG Tab PO ONE (14:28)
[2022-02-21] MEDS: Ibuprofen 600 MG Tab PO ONE ×2 (14:40→14:42)
== END 2022-02-21 14:48 | disposition home or self-care (01) ==
LOC: MW.ED 13:43
DX: K04.7 Periapical abscess without sinus (principal); I10 Essential (primary) hypertension; Z79.899 Other long term (current) drug therapy; Z88.6 Allergy status to analgesic agent
CPT/HCPCS: 99282; A9270

== ENCOUNTER 2023-10-27 09:26 | Observation (INO) | payer BC ==
[2023-10-27] MEDS ORDERED: Sodium Chloride 0.9% 1,000 ML IV STA ×3 (10:34→11:39)
[2023-10-27 10:56] LABS: BASOPHILS ABSOLUTE AUTO 0.02 K/uL (0.00-0.20); BASOPHILS PERCENT AUTO 0.3 % (0.0-1.0); EOSINOPHILS ABSOLUTE AUTO 0.06 K/uL (0.00-0.45); EOSINOPHILS PERCENT AUTO 0.8 % (0.0-6.0); IMMATURE GRAN ABSOLUTE AUTO 0.02 K/uL (0.00-0.05); IMMATURE GRAN PERCENT AUTO 0.3 % (0.0-0.4); LYMPHOCYTES ABSOLUTE AUTO 1.44 K/uL (1.00-4.80); LYMPHOCYTES PERCENT AUTO 19.9 % (24.0-44.0); MEAN CORPUSCULAR HEMOGLOBIN 31.3 pg (28.0-32.0); MEAN CORPUSCULAR HGB CONC 33.9 g/dL (32.0-36.0); MEAN CORPUSCULAR VOLUME 92.3 fL (83.0-99.0); MEAN PLATELET VOLUME 10.7 fL (9.4-12.4); NEUTROPHILS PERCENT AUTO 67.7 % (41.0-71.0); PLATELET COUNT,PLT 220 K/uL (150-400); RED BLOOD CELL COUNT 6.39 M/uL (4.52-5.90); WHITE BLOOD CELL COUNT,WBC 7.24 K/uL (3.9-11.3)
[2023-10-27 11:33] LABS: CORONAVIRUS COVID-19 NAA NEGATIVE (NEGATIVE); INFLUENZA A NAA NEGATIVE (NEGATIVE); INFLUENZA B NAA NEGATIVE (NEGATIVE); RESPIRATORY SYNCYTIAL VIR NAA NEGATIVE (NEGATIVE)
[2023-10-27 12:45] LABS: ALBUMIN 4.4 g/dL (3.4-5.0); BILIRUBIN TOTAL 0.9 mg/dL (0.2-1.0); CALCIUM 8.5 mg/dL (8.5-10.1); CARBON DIOXIDE,CO2 20.4 mmol/L (21.0-32.0); CREATININE 2.2 mg/dL (0.8-1.3); EST CRCL DRUG DOSING (CG) 41.06 mL/min; MAGNESIUM 2.5 mg/dL (1.8-2.4); POTASSIUM,K 6.6 mmol/L (3.5-5.1)
[2023-10-27] MEDS ORDERED: Lactated Ringers 1,000 ML IV STA ×2 (13:23→16:14)
[2023-10-27] MEDS ORDERED: Glucagon,Human Recombinant 1 MG Vial IM PRN (13:41)
[2023-10-27] MEDS ORDERED: 50% Dextrose in Water 50 ML Syringe IV STA (13:41)
[2023-10-27] MEDS ORDERED: Calcium Gluconate 10% 1 GM/10 ML SDV IVPUSH STA (13:41)
[2023-10-27] MEDS ORDERED: Insulin Regular, Human 100 Units/ML 10 ML Vial IVPUSH STA (13:41)
[2023-10-27] MEDS ORDERED: Albuterol 0.083% 2.5 MG/3 ML Neb Soln NEB STA (13:41)
[2023-10-27 16:00] LABS: CALCIUM 8.4 mg/dL (8.5-10.1); CARBON DIOXIDE,CO2 19.9 mmol/L (21.0-32.0); CREATININE 1.8 mg/dL (0.8-1.3); EST CRCL DRUG DOSING (CG) 50.19 mL/min; POTASSIUM,K 4.6 mmol/L (3.5-5.1)
[2023-10-27] MEDS ORDERED: Loperamide 2 MG Cap PO ONE (18:10)
[2023-10-27] MEDS: Lactated Ringers 1,000 ML IV SCH (18:43)
[2023-10-27] MEDS ORDERED: Albuterol/Ipratropium 3.0-0.5 MG/3 ML Neb Soln NEB PRN (19:09)
[2023-10-27] MEDS ORDERED: Acetaminophen 325 MG Tab PO PRN (19:09)
[2023-10-27] MEDS ORDERED: Ondansetron 4 MG/2 ML SDV IVPUSH PRN (19:09)
[2023-10-27] MEDS ORDERED: SUMAtriptan 50 MG Tab PO PRN (19:11)
[2023-10-28] MEDS: Lactated Ringers 1,000 ML IV SCH ×2 (02:08→09:01)
[2023-10-28 06:09] LABS: BASOPHILS ABSOLUTE AUTO 0.01 K/uL (0.00-0.20); BASOPHILS PERCENT AUTO 0.3 % (0.0-1.0); EOSINOPHILS ABSOLUTE AUTO 0.13 K/uL (0.00-0.45); EOSINOPHILS PERCENT AUTO 3.3 % (0.0-6.0); HEMATOCRIT 37.9 % (42.0-52.0); HEMOGLOBIN 13.3 g/dL (14.0-18.0); IMMATURE GRAN ABSOLUTE AUTO 0.01 K/uL (0.00-0.05); IMMATURE GRAN PERCENT AUTO 0.3 % (0.0-0.4); LYMPHOCYTES ABSOLUTE AUTO 1.28 K/uL (1.00-4.80); LYMPHOCYTES PERCENT AUTO 32.8 % (24.0-44.0); MEAN CORPUSCULAR HEMOGLOBIN 32.5 pg (28.0-32.0); MEAN CORPUSCULAR HGB CONC 35.1 g/dL (32.0-36.0); MEAN CORPUSCULAR VOLUME 92.7 fL (83.0-99.0); MEAN PLATELET VOLUME 8.8 fL (9.4-12.4); MONOCYTES ABSOLUTE AUTO 0.51 K/uL (0.00-0.80); MONOCYTES PERCENT AUTO 13.1 % (0.0-8.0); NEUTROPHILS ABSOLUTE AUTO 1.96 K/uL (1.80-7.70); NEUTROPHILS PERCENT AUTO 50.2 % (41.0-71.0); PLATELET COUNT,PLT 151 K/uL (150-400); RED BLOOD CELL COUNT 4.09 M/uL (4.52-5.90)
[2023-10-28 06:44] LABS: A/G RATIO 0.9 (0.9-1.6); BILIRUBIN TOTAL 1.9 mg/dL (0.2-1.0); CALCIUM 7.9 mg/dL (8.5-10.1); CARBON DIOXIDE,CO2 22.4 mmol/L (21.0-32.0); CREATININE 1.3 mg/dL (0.8-1.3); EST CRCL DRUG DOSING (CG) 69.49 mL/min; PROTEIN TOTAL,TP 6.3 g/dL (6.4-8.2)
== END 2023-10-28 14:30 | disposition home or self-care (01) ==
LOC: MW.ED 09:26 → MW.MS 17:05
PROVIDERS: ADMIT Family Medicine; ATTEND Family Medicine
DX: N17.9 Acute kidney failure, unspecified (principal); R19.8 Other specified symptoms and signs involving the digestive system and abdomen; E86.0 Dehydration; Z93.2 Ileostomy status; Z79.899 Other long term (current) drug therapy; Z79.51 Long term (current) use of inhaled steroids; Z88.5 Allergy status to narcotic agent; Z20.822 Contact with and (suspected) exposure to COVID-19
CPT/HCPCS: 0241U; 36415; 76705; 80048; 80053; 82947; 83690; 83735; 84100; 85025; 93005; 96361; 96374; 99285; A9270; J0612; J7030; J7120; J1815-GY; J3490; J7620-GY